=== PATIENT | male | born 1945 | race Caucasian/White ===

== ENCOUNTER 2016-11-19 19:48 | Observation (INO) | payer MEDICARE, OTHER ==
[~2016-11-19] VITALS: Ht 185.4 cm; Wt 99.5 kg
--- OUTSIDE RECORDS SUMMARY | 2016-11-19 19:52 | XMS REPORT | Summary of Care ---
Author Author Jorge A Daugherty M.D. Organization Unknown Address [address], [place] [id number] Phone Unavailable Care Team Providers Care Registered Respiratory Therapist Name Role Phone Jorge A Daugherty M.D. Unavailable Unavailable Ten Aggarwal M.D. Unavailable Unavailable Gorge Maher, Rodríguez Unavailable Unavailable Jorge A Daugherty PP Unavailable Unavailable Unavailable Functional Status Functional Status Health Issues* Name Dates Details Functional status health issues are not documented Status: Cognitive Status Health Issues* Name Dates Details Cognitive status health issues are not documented Status: Problems Name Dates Details Itching Localized To Skin Rash Or Sores Status: Active Cough (786.2, R05) Status: Active Difficulty breathing (786.09, R06.89) Status: Active Atypical chest pain (786.59, R07.89) Status: Active Internal hemorrhoids (455.0, K64.8) Status: Active Encounter for screening for malignant neoplasm of colon (V76.51, Z12.11) Status: Active Bronchitis (490, J40) Status: Active Flu vaccine need (V04.81, Z23) Status: Active Need for vaccination for strep pneumoniae + influenza (V06.6, Z23) Status: Active Dyslipidemia (272.4, E78.5) Status: Active Contact dermatitis (692.9, L25.9) Status: Active Abdominal pain (789.00, R10.9) Status: Active Kidney stone (592.0, N20.0) Status: Active GERD (gastroesophageal reflux disease) (530.81, K21.9) Status: Active Memory loss (780.93, R41.3) Status: Active Chronic obstructive pulmonary disease (496, J44.9) Status: Active Acute bronchitis (466.0, J20.9) Status: Active Chronic constipation (564.00, K59.00) Status: Active Hyperlipidemia (272.4, E78.5) Status: Active Medications Name Dates Details PriLOSEC OTC 20 MG Oral Tablet Delayed Release Take 1 tablet daily * Started 14-Mar-2012 ActiveAlbuterol Sulfate (2.5 MG/3ML) 0.083% Inhalation Nebulization Solution USE 1 UNIT DOSE VIA NEBULIZER 4 TIMES A DAY NEEDED * Quantity: 1 Refills: 0 Jorge A Daugherty M.D.* Started 23-Jul-2012 Active3 ML Plas Cont (60 Plas Conts) Stool Softener 100 MG Oral Capsule Take 100mg (2 tablets) po @ HS prn * Refills: 0 Nell Aggarwal M.D.* Started 16-Oct-2012 ActiveAtorvastatin Calcium 80 MG Oral Tablet TAKE 1 TABLET AT BEDTIME. * Quantity: 90 Refills: 3 Jorge A Daugherty M.D.* Started 10-Nov-2013 ActiveBiotin 10 MG Oral Tablet * Refills: 0 * Started 26-Oct-2014 ActiveDonepezil HCl - 10 MG Oral Tablet TAKE 1/2 TABLET DAILY FOR 4 WEEKS,THEN 1 TABLET DAILY THEREAFTER * Quantity: 30 Refills: 5 Sam Pennington M.D.* Started 10-May-2015 Active Allergies and Adverse Reactions Name Dates Details No Known Drug Allergies Status: Active Past Medical History Name Dates Details History of asthma (V12.69, Z87.09) Status: Resolved History of head injury (V15.59, Z87.828) Status: Resolved History of Hearing loss of both ears (389.9, H91.93) Status: Resolved History of seasonal allergies (V15.09, Z88.9) Status: Resolved History of tinnitus (V12.49, Z86.69) Status: Resolved History of Wears glasses (V49.89, Z97.3) Status: Resolved Procedures Procedure Dates Details History of Appendectomy History of Complete Colonoscopy For Polyp Removal Completed:16-Oct-2012 History of Tonsillectomy History of Closed Treatment Of Clavicular Fracture Procedures not documented Immunization Name Dates Details Influenza Administered on:16-Sep-2009 Influenza A (H1N1) Monoval PF Intramuscular Suspension Administered on:16-Sep-2009 Pneumo (Pneumovax) Administered on:16-Sep-2009 Influenza Administered on:24-Apr-2011 Zoster (Zostavax) Administered on:19-Aug-2012 Influenza Administered on:08-Jul-2013 Fluzone High-Dose Intramuscular Suspension Lot #: [id number] Administered on:22-Jun-2014 Prevnar 13 Intramuscular Suspension Lot #: [id number] Administered on:22-Jun-2014 Tdap (Adacel) Lot #: [id number] Administered on: Fluzone High-Dose Intramuscular Suspension Lot #: [id number] Administered on:25-Apr-2015 Family History Unknown Family Member* Name Dates Details Family history of Acute Myocardial Infarction (V17.3) Comments: Family History Status: Active Grandmother* Name Dates Details Family history of Heart Disease (V17.49) Status: Active Grandmother* Name Dates Details Family history of Acute Myocardial Infarction (V17.3) Status: Active Father* Name Dates Details Family history of Prostate Cancer (V16.42) Status: Active Brother* Name Dates Details Family history of Hypercholesterolemia Status: Active Social History Name Dates Details Smoking Status* Former smoker * Former smoker Vital Signs Date Test Result Details 08-Aug-2015 10:33 BP Systolic 128 mm[Hg] Status: BP Diastolic 86 mm[Hg] Status: Heart Rate 84 /min Status: Respiration Rate 18 /min Status: Weight 214 lb Status: Body Mass Index Calculated 28.23 kg/m2 Status: Body Surface Area Calculated 2.21 m2 Status: Results Date Description Value Details Results not documented Plan of Care Planned Observations* Name Dates Details Planned Goals not documented Goal Planned Encounters* Appointment; Provider: Sam Pennington On 08-Nov-2015 09:30 * Appointment; Provider: Jorge A Daugherty On 07-Nov-2015 09:00 Instructions * Instructions not documented Encounters Appointment; Jorge A Daugherty Encounter Diagnosis: Problem not documented On 08-Aug-2015 10:30 Appointment; Sam Pennington Encounter Diagnosis: Problem not documented On 10-May-2015 08:30 Appointment; Jorge A Daugherty Encounter Diagnosis: Problem not documented On 25-Apr-2015 08:45 Appointment; Jorge A Daugherty Encounter Diagnosis: Problem not documented On 09:00 Appointment; Jorge A Daugherty Encounter Diagnosis: Problem not documented On 09:00 Appointment; Jorge A Daugherty Encounter Diagnosis: Problem not documented On 09:00 Appointment; Jorge A Daugherty Encounter Diagnosis: Problem not documented On 08:45 Appointment; Jorge A Daugherty Encounter Diagnosis: Problem not documented On 06-Dec-2014 09:30 Appointment; Jorge A Daugherty Encounter Diagnosis: Problem not documented On 29-Nov-2014 11:00 Appointment; Sam Pennington Encounter Diagnosis: Problem not documented On 05-Nov-2014 09:45 Appointment; Sam Pennington Encounter Diagnosis: Problem not documented On 26-Oct-2014 10:00 Appointment; Jorge A Daugherty Encounter Diagnosis: Problem not documented On 29-Sep-2014 09:15 Appointment; Jorge A Daugherty Encounter Diagnosis: Problem not documented On 22-Jun-2014 09:00 Appointment; Jorge A Daugherty Encounter Diagnosis: Problem not documented On 16-Mar-2014 09:00 Appointment; Sam [place] Encounter Diagnosis: Problem not documented On 11:00 Appointment; Sam Park Encounter Diagnosis: Problem not documented On 14:45 Appointment; Sam [place] Encounter Diagnosis: Problem not documented On 03-Dec-2013 17:15 Appointment; Sam [place] Encounter Diagnosis: Problem not documented On 03-Dec-2013 15:30 Appointment; Jorge A Daugherty Encounter Diagnosis: Problem not documented On 10-Nov-2013 09:00 Appointment; Jorge A Daugherty Encounter Diagnosis: Problem not documented On 30-Oct-2013 11:00 Appointment; Jorge A Daugherty Encounter Diagnosis: Problem not documented On 28-Oct-2013 09:30
--- OUTSIDE RECORDS SUMMARY | 2016-11-19 19:52 | XMS REPORT | Summary of Care ---
Author Author Sam Pennington M.D. Unknown Address [address], [place] [id number] Phone Unavailable Care Team Providers Care Sample Sawyer Name Role Phone Jorge A Daugherty M.D. Unavailable Unavailable Ten Aggarwal M.D. Unavailable Unavailable Jorge A Daugherty PP Unavailable [...] Active Difficulty breathing (786.09, R06.89) Status: Active Acute bronchitis (466.0, J20.9) Status: Active Atypical chest pain (786.59, R07.89) Status: Active Internal hemorrhoids (455.0, K64.8) Status: Active Encounter for screening for malignant neoplasm of colon (V76.51, Z12.11) Status: Active Bronchitis (490, J40) Status: Active Flu vaccine need (V04.81, Z23) Status: Active Need for vaccination for strep pneumoniae + influenza (V06.6, Z23) Status: Active Chronic obstructive pulmonary disease (496, J44.9) Status: Active Chronic constipation (564.00, K59.00) Status: Active Dyslipidemia (272.4, E78.5) Status: Active Hyperlipidemia (272.4, E78.5) Status: Active GERD (gastroesophageal reflux disease) (530.81, K21.9) Status: Active Contact dermatitis (692.9, L25.9) Status: Active Memory loss (780.93, R41.3) Status: Active Medications Name Dates Details PriLOSEC OTC 20 MG Oral Tablet Delayed Release Take 1 tablet daily * Started 14-Mar-2012 ActiveAlbuterol Sulfate (2.5 MG/3ML) 0.083% Inhalation Nebulization Solution USE 1 UNIT DOSE VIA NEBULIZER 4 TIMES A DAY NEEDED * Quantity: 1 Refills: 0 Jorge A Daugherty M.D.* Started 23-Jul-2012 Active3 ML Plas Cont (60 Plas Conts) Proventil HFA 108 (90 Base) MCG/ACT Inhalation Aerosol Solution 2 PUFFS EVERY 4 TO 6 HOURS NEEDED * Quantity: 1 Refills: 4 Jorge A Daugherty M.D.* Started 23-Jul-2012 Active6.7 GM Inhaler Stool Softener 100 MG Oral Capsule Take 100mg (2 tablets) po @ HS prn * Refills: 0 Nell Aggarwal M.D.* Started 16-Oct-2012 ActiveAtorvastatin Calcium 80 MG Oral Tablet TAKE 1 TABLET AT BEDTIME. * Quantity: 90 Refills: 3 Jorge A Daugherty M.D.* Started 10-Nov-2013 ActiveBiotin 10 MG Oral Tablet * Refills: 0 * Started 26-Oct-2014 Active Allergies and Adverse Reactions Name Dates [...] History of Closed Treatment Of Clavicular Fracture Neuro Dementia Profile 9011 Ordered:26-Oct-2014 CT HEAD WITHOUT AND WITH IV CONTRAST Ordered:26-Oct-2014 Immunization Name Dates Details Influenza Administered on:16-Sep-2009 Influenza A (H1N1) Monoval PF Intramuscular Suspension Administered on:16-Sep-2009 Pneumo (Pneumovax) Administered on:16-Sep-2009 Influenza Administered on:24-Apr-2011 Zoster (Zostavax) Administered on:19-Aug-2012 Influenza Administered on:08-Jul-2013 Fluzone High-Dose Intramuscular Suspension Lot #: [id number] Administered on:22-Jun-2014 Prevnar 13 Intramuscular Suspension Lot #: [id number] Administered on:22-Jun-2014 Family History Unknown Family Member* Name Dates [...] smoker Vital Signs Date Test Result Details 26-Oct-2014 10:09 BP Systolic 130 mm[Hg] Status: BP Diastolic 76 mm[Hg] Status: Heart Rate 78 /min Status: Respiration Rate 16 /min Status: Weight 219.125 lb Status: Body Mass Index Calculated 28.91 kg/m2 Status: Body Surface Area Calculated 2.24 m2 Status: 29-Sep-2014 08:47 BP Systolic 126 mm[Hg] Status: BP Diastolic 78 mm[Hg] Status: Heart Rate 76 /min Status: Respiration Rate 20 /min Status: Weight 224.2 lb Status: Body Mass Index Calculated 29.58 kg/m2 Status: Body Surface Area Calculated 2.26 m2 Status: Results Date Description Value Details Results not documented Plan of Care Planned Observations* Name Dates Details Planned Goals not documented Goal Planned Encounters* Appointment; Provider: Jorge A Daugherty On 08:45 * Appointment; Provider: Sam Pennington On 17-Nov-2014 08:45 Instructions * Instructions not documented Encounters Appointment; Sam Pennington Encounter Diagnosis: Problem not [...] On 03-Dec-2013 15:30 Appointment; Jorge A Daugherty Diagnosis: Problem not documented On 10-Nov-2013 09:00 Appointment; Jorge A Daugherty Encounter Diagnosis: Problem not documented On 30-Oct-2013 11:00 Appointment; Jorge A Daugherty Diagnosis: Problem not documented On 28-Oct-2013 09:30 Appointment; Jorge A Daugherty Diagnosis: Problem not documented On 08-Jul-2013 13:30 Appointment; Jorge A Daugherty Diagnosis: Problem not documented On 18-Mar-2013 08:45 Appointment; Jorge A Daugherty Diagnosis: Problem not documented On 17-Nov-2012 09:00
--- OUTSIDE RECORDS SUMMARY | 2016-11-19 19:52 | XMS REPORT ---
Author Author Jorge A Daugherty Organization Unknown Address [address], [place] [id number] Phone Care Team Providers Care Manager Of Health Name Role Phone JulesWillow wilkins PP Unavailable Unavailable Reason for Referral No Reason for Referral was given. History of Present Illness No HPI available. Problems * Normal Routine History And Physical Senior Citizen (65-80) (V70.0); ( Active) * Acute Bronchitis (466.0); (Active) * Cough (786.2); (Active) * Chronic Obstructive Pulmonary Disease (496); (Active) * Atypical Chest Pain (786.59); (Active) * Difficulty Breathing (Dyspnea) (786.09); (Active) * Dyslipidemia (272.4); (Active) * Itching Localized To Skin Rash Or Sores (Active) * Hyperlipidemia (272.4); (Active) * Bronchitis (490); (Active) * Visit For: Screening Malignant Neoplasm Colon (V76.51); (Active) * Chronic Constipation (564.00); (Active) * Internal Hemorrhoids (455.0); (Active) Medication * Simvastatin 80 MG Oral Tablet; TAKE 1 TABLET Daily in the evening; Start Date : 09/08/2007; End Date: (Active) * PriLOSEC OTC 20 MG Oral Tablet Delayed Release; Take 1 tablet daily; Start Date: 03/14/2012 (Active) * Albuterol Sulfate (2.5 MG/3ML) 0.083% Inhalation Nebulization Solution; USE 1 UNIT DOSE VIA NEBULIZER 4 TIMES A DAY NEEDED; Start Date: 07/23/2012; End Date: (Active) * Proventil HFA 108 (90 Base) MCG/ACT Inhalation Aerosol Solution; 2 PUFFS EVERY 4 TO 6 HOURS NEEDED; Start Date: 07/23/2012; End Date: ( Active) * Stool Softener 100 MG Oral Capsule; Take 100mg (2 tablets) po @ HS prn; Start Date: 10/16/2012 (Active) Allergies and Adverse Reactions * No Known Drug Allergies (Active) Past Medical History * No Significant Medical History Procedures Procedure Procedure Date Date Completed Status Appendectomy - - Active Complete Colonoscopy For Polyp Removal 10/16/2012 - Active Immunization * Influenza - Administered on: 09/16/2009 * Influenza A (H1N1) Monoval PF Intramuscular Suspension - Administered on: * Pneumo (Pneumovax) - Administered on: 09/16/2009 * Influenza - Administered on: 04/24/2011 * Zoster (Zostavax); #Zostavax [id number] UNT/0 - Administered on: 08/19/2012 Family History * Paternal grandmother's history of Acute Myocardial Infarction (V17.3); (Active) * Maternal grandmother's history of Heart Disease (V17.49); (Active) * Paternal history of Prostate Cancer (V16.42); (Active) * Fraternal history of Hypercholesterolemia (Active) * Family history of Acute Myocardial Infarction (V17.3); (Active) Social History * Former Smoker Last Assessed: 11/17/2012 8:55:32 AM (V15.82); (Active) * Retired From Work (Active) * Marital History - Currently (Active) * Recently Stopping Smoking Comments: quit smoking 2008 (Active) * Educational Level - In College Year 2 (Active) * Caffeine Use Comments: 2 or less drinks daily (Active) * Being A Social Drinker Comments: rarely 2 or less drinks (Active) * Exercise Habits Comments: exercises daily (Active) * Racial Background (___ %) (Active) * [place] Language Finnish (Active) Vital Signs Date Description Test Result 17 Nov 2012 08:55 AM recorded by: Angeles Ledesma Weight 222.6 lb Body Mass Index Calculated 29.5 Body Surface Area Calculated 2.25 BP Systolic 132 mm[Hg] BP Diastolic 72 mm[Hg] Heart Rate 76 /min Resipration Rate 16 /min Treatment Plan * XN CARD REST PERFUSION 11/08/2011 Routine * XN NUC MED HEART WALL MOTION 11/08/2011 Routine * XN PERFUSION STUDY WITH EF 11/08/2011 Routine * XN CARD STRESS PERFUSION 11/08/2011 Routine Advance Directives * No Advance Directives available. Encounters * Appointment 11/17/2012 * RTNPT , Provider: Willow Jules, Status: Pen , Time: 8:45 AM 2012
--- OUTSIDE RECORDS SUMMARY | 2016-11-19 19:52 | XMS REPORT | Summary of Care ---
Author Author Jorge A Daugherty M.D. Organization Unknown Address Unknown Phone Unavailable Care Team Providers Care Lodge Sales Associate Name Role Phone Jorge A Daugherty M.D. Unavailable Unavailable Jasen Maher, Ten Unavailable Unavailable Jorge A Daugherty PP Unavailable Unavailable Unavailable Functional Status Functional Status Health Issues* Name Dates Details Functional status health issues are not documented Status: Cognitive Status Health Issues* Name Dates Details Cognitive status health issues are not documented Status: Problems Name Dates Details Hyperlipidemia (272.4, E78.5) Status: Active Chronic constipation (564.00, K59.09) Status: Active Memory loss (780.93, R41.3) Status: Active GERD (gastroesophageal reflux disease) (530.81, K21.9) Status: Active Dyslipidemia (272.4, E78.5) Status: Active COPD with exacerbation (491.21, J44.1) Status: Active Chronic obstructive pulmonary disease (496, J44.9) Status: Active Medications Name Dates Details PriLOSEC [...] 3 Jorge A Daugherty M.D.* Started 10-Nov-2013 Active Allergies and Adverse Reactions Name Dates [...] History of Closed Treatment Of Clavicular Fracture History of Cataract Extraction Procedures not documented Immunization Name Dates Details Influenza Administered on:16-Sep-2009 Influenza A (H1N1) Monoval PF Intramuscular Suspension Administered on:16-Sep-2009 Pneumo (Pneumovax) Administered on:16-Sep-2009 Influenza Administered on:24-Apr-2011 Zoster (Zostavax) Administered on:19-Aug-2012 Influenza Administered on:08-Jul-2013 Fluzone High-Dose Intramuscular Suspension Lot #: [id number] Administered on:22-Jun-2014 Prevnar 13 Intramuscular Suspension Lot #: [id number] Administered on:22-Jun-2014 Tdap (Adacel) Lot #: [id number] Administered on: Fluzone High-Dose Intramuscular Suspension Lot #: [id number] Administered on:25-Apr-2015 Family History Unknown Family Member* [...] smoker Vital Signs Date Test Result Details 08:13 BP Systolic 124 mm[Hg] Status: BP Diastolic 78 mm[Hg] Status: Heart Rate 76 /min Status: Respiration Rate 16 /min Status: Weight 219 lb Status: Body Mass Index Calculated 28.89 kg/m2 Status: Body Surface Area Calculated 2.24 m2 Status: Results Date Description Value Details Results not documented Plan of Care Planned Observations* Name Dates Details Planned Goals not documented Goal Planned Encounters* Appointment; Provider: Jorge A Daugherty On 29-May-2016 08:15 * Appointment; Provider: Jorge A Daugherty On 27-Feb-2016 08:15 Instructions * Instructions not documented Encounters Appointment; Jorge A Daugherty Encounter Diagnosis: Problem not documented On 08:15 Appointment; Jorge A Daugherty Encounter Diagnosis: Problem not documented On 21-Nov-2015 08:15 Appointment; Jorge A Daugherty Encounter Diagnosis: Problem not documented On 07-Nov-2015 09:15 Appointment; Jorge A Daugherty Encounter Diagnosis: [...]
--- OUTSIDE RECORDS SUMMARY | 2016-11-19 19:53 | XMS REPORT | Summary of Care ---
Author Author Jorge A Daugherty M.D. Organization Unknown Address [address] [place], [place] [id number] Phone Unavailable Care Team Providers Care Cashier Host/Hostess Name Role Phone Jorge A Daugherty M.D. [...] pneumoniae + influenza (V06.6, Z23) Status: Active Contact dermatitis (692.9, L25.9) Status: Active Abdominal pain (789.00, R10.9) Status: Active Kidney stone (592.0, N20.0) Status: Active Acute bronchitis (466.0, J20.9) Status: Active Hyperlipidemia (272.4, E78.5) Status: Active Chronic obstructive pulmonary disease (496, J44.9) Status: Active Chronic constipation (564.00, K59.00) Status: Active Dyslipidemia (272.4, E78.5) Status: Active GERD (gastroesophageal reflux disease) (530.81, K21.9) Status: Active Memory loss (780.93, R41.3) Status: Active Medications Name Dates Details PriLOSEC OTC 20 MG Oral Tablet Delayed Release Take 1 tablet daily * Started 14-Mar-2012 ActiveStool Softener 100 MG Oral Capsule Take 100mg [...] Refills: 5 Sam Pennington M.D.* Started 10-May-2015 ActiveAlbuterol Sulfate (2.5 MG/3ML) 0.083% Inhalation Nebulization Solution USE 1 UNIT DOSE VIA NEBULIZER 4 TIMES A DAY NEEDED * Quantity: 1 Refills: 0 Jorge A Daugherty M.D.* Started 23-Jul-2012 Active3 ML Plas Cont (60 Plas Conts) Allergies and Adverse Reactions Name Dates Details [...] on:08-Jul-2013 Fluzone High-Dose Intramuscular Suspension Lot #: [id number] Administered on:22-Jun-2014 Prevnar 13 Intramuscular Suspension Lot #: [id number] Administered on:22-Jun-2014 Tdap (Adacel) Lot #: [id number] Administered on: Fluzone High-Dose Intramuscular Suspension Lot #: [id number] Administered on:25-Apr-2015 Family History Unknown Family Member* [...] not documented On 09:00 Appointment; Jorge A aDugherty Encounter Diagnosis: Problem not documented On 09:00 [...]
--- OUTSIDE RECORDS SUMMARY | 2016-11-19 19:53 | XMS REPORT | Summary of Care ---
Author Author Jorge A Daugherty M.D. Unknown Address [address] [place], [place] [id number] Phone Unavailable Care Team Providers Care Hydrogenation Operator Name Role Phone Jorge A Daugherty M.D. [...] Active Memory loss (780.93, R41.3) Status: Active Abdominal pain (789.00, R10.9) Status: Active Chronic constipation (564.00, K59.00) Status: Active Kidney stone (592.0, N20.0) Status: Active Hyperlipidemia (272.4, E78.5) Status: Active GERD (gastroesophageal reflux disease) (530.81, K21.9) Status: Active Acute bronchitis (466.0, J20.9) Status: Active Chronic obstructive pulmonary disease (496, [...] Tablet * Refills: 0 * Started 26-Oct-2014 ActiveMedrol (Ric) 4 MG Oral Tablet TAKE DIRECTED. * Quantity: 1 Refills: 0 Jorge A Daugherty M.D.* Started [id number] Tablet Disp Pack Levofloxacin 500 MG Oral Tablet 1 tab po daily x 7 days * Quantity: 7 Refills: 0 Jorge A Daugherty M.D.* Started Active Allergies and Adverse Reactions Name Dates [...] on:08-Jul-2013 Fluzone High-Dose Intramuscular Suspension Lot #: [id number] Administered on:22-Jun-2014 Prevnar 13 Intramuscular Suspension Lot #: [id number] Administered on:22-Jun-2014 Tdap (Adacel) Lot #: [id number] Administered on: Family History Unknown Family Member* Name Dates [...] smoker Vital Signs Date Test Result Details No Known Vitals to report Results Date Description Value Details Results not documented Plan of Care Planned Observations* Name Dates Details Planned Goals not documented Goal Planned Encounters* Appointment; Provider: Sam Pennington On 10-May-2015 08:30 * Appointment; Provider: Jorge A Daugherty On 25-Apr-2015 08:45 Instructions * Instructions not documented Encounters [...] On 28-Oct-2013 09:30 Appointment; Jorge A Daugherty Encounter Diagnosis: Problem not documented On 08-Jul-2013 13:30 Appointment; Jorge A Daugherty Encounter Diagnosis: Problem not documented On 18-Mar-2013 08:45
--- OUTSIDE RECORDS SUMMARY | 2016-11-19 19:53 | XMS REPORT | Summary of Care ---
Author Author Jorge A Daugherty M.D. Unknown Address [address] [place], [place] [id number] Phone Unavailable Care Team Providers Care Financial Service Rep Name Role Phone Jorge A Daugherty M.D. [...] Refills: 0 Jorge A Daugherty M.D.* Started [id number] Tablet Disp Pack Levofloxacin 500 MG Oral [...] on:08-Jul-2013 Fluzone High-Dose Intramuscular Suspension Lot #: [id number] Administered on:22-Jun-2014 Prevnar 13 Intramuscular Suspension Lot #: [id number] Administered on:22-Jun-2014 Tdap (Adacel) Lot #: [id number] Administered on: Family History Unknown Family Member* [...]
--- OUTSIDE RECORDS SUMMARY | 2016-11-19 19:53 | XMS REPORT | Summary of Care ---
Author Author Jorge A Daugherty M.D. Organization Unknown Address [address], [place] [id number] Phone Unavailable Care Team Providers Care Senior Specialist Name Role Phone Jorge A Daugherty M.D. [...] To Skin Rash Or Sores Status: Active Difficulty breathing (786.09, R06.89) Status: [...] (496, J44.9) Status: Active Chronic constipation (564.00, K59.09) Status: Active Dyslipidemia (272.4, E78.5) Status: Active [...] 3 Jorge A Daugherty M.D.* Started 10-Nov-2013 ActivePredniSONE 10 MG Oral Tablet 4 tabs day x 4 days, 3 tabs day x 4 days, 2 tabs day x 4 days , 1 tab day x 4 days then d/c * Quantity: 40 Refills: 0 Jorge A Daugherty M.D.* Started 07-Nov-2015 Active Allergies and Adverse Reactions Name Dates [...] History of Closed Treatment Of Clavicular Fracture CBC w/ Auto Diff 7150 Ordered:07-Nov-2015 Immunization Name Dates Details Influenza Administered on:16-Sep-2009 Influenza A (H1N1) Monoval PF Intramuscular Suspension Administered on:16-Sep-2009 Pneumo (Pneumovax) Administered on:16-Sep-2009 Influenza Administered on:24-Apr-2011 Zoster (Zostavax) Administered on:19-Aug-2012 Influenza Administered on:08-Jul-2013 Fluzone High-Dose Intramuscular Suspension Lot #: [id number] Administered on:22-Jun-2014 Prevnar 13 Intramuscular Suspension Lot #: [id number] Administered on:22-Jun-2014 Tdap (Adacel) Lot #: [id number] Administered on: Fluzone High-Dose Intramuscular Suspension Lot #: [id number] Administered on:25-Apr-2015 Family History Unknown Family Member* [...] smoker Vital Signs Date Test Result Details 07-Nov-2015 08:34 BP Systolic 132 mm[Hg] Status: BP Diastolic 84 mm[Hg] Status: Heart Rate 78 /min Status: Respiration Rate 18 /min Status: Weight 216 lb Status: O2 SAT 97 % Status: Body Mass Index Calculated 28.5 kg/m2 Status: Body Surface Area Calculated 2.22 m2 Status: Results Date Description Value Details Results not documented Plan of Care Planned Observations* Name Dates Details Planned Goals not documented Goal Planned Encounters* Appointment; Provider: Jorge A Daugherty On 21-Nov-2015 08:15 * Appointment; Provider: Sam Pennington On 08-Nov-2015 09:30 Instructions * Instructions not documented Encounters Appointment; Jroge A Daugherty Diagnosis: Problem not documented On 08-Aug-2015 10:30 [...]
--- OUTSIDE RECORDS SUMMARY | 2016-11-19 19:53 | XMS REPORT | Summary of Care ---
Author Author Jorge A Daugherty M.D. Organization Unknown Address Unknown Phone Unavailable Care Team Providers Care Director Of Claims Name Role Phone Jorge A Daugherty M.D. Unavailable Unavailable Ten Aggarwal M.D. Unavailable Unavailable Jorge A Daugherty Unavailable Unavailable Unavailable Unavailable Functional Status Name Dates Details Functional status health issues are not documented Status: Name Dates Details Cognitive status health issues are not documented Status: Problems Name Dates Details Hyperlipidemia (272.4, E78.5) Status: Active Chronic constipation (564.00, K59.09) Status: Active Memory loss (780.93, R41.3) Status: Active Chronic obstructive pulmonary disease (496, J44.9) Status: Active COPD with exacerbation (491.21, J44.1) Status: Active Dyslipidemia (272.4, E78.5) Status: Active GERD (gastroesophageal reflux disease) (530.81, K21.9) Status: Active Medications Name Dates Details PriLOSEC OTC 20 MG Oral Tablet Delayed Release Take 1 tablet daily * Start 14-Mar-2012 Active Albuterol Sulfate (2.5 MG/3ML) 0.083% Inhalation Nebulization Solution USE 1 UNIT DOSE VIA NEBULIZER 4 TIMES A DAY NEEDED * Quantity: 1 Refills: 0 Jorge A Daugherty M.D. * Start 23-Jul-2012 Active 3 ML Plas Cont (60 Plas Conts) Stool Softener 100 MG Oral Capsule Take 100mg (2 tablets) po @ HS prn * Refills: 0 Jasen Maher December * Start 16-Oct-2012 Active Atorvastatin Calcium 80 MG Oral Tablet TAKE 1 TABLET AT BEDTIME. * Quantity: 90 Refills: 3 Jorge A Daugherty M.D. * Start 10-Nov-2013 Active Budesonide 0.25 MG/2ML Inhalation Suspension USE ONE VIAL IN NEBULIZER TWO TIMES DAILY * Quantity: 6 Refills: 3 Jorge A Daugherty M.D. * Start 27-Feb-2016 Active 2 ML Plas Cont (30 Plas Conts) Allergies and Adverse Reactions Name Dates Details No Known Drug Allergies (Allergy) Status: Active Past Medical History Name Dates [...] History of Complete Colonoscopy For Polyp Removal Completed: 16-Oct-2012 History of Tonsillectomy History of Closed Treatment Of Clavicular Fracture History of Cataract Extraction Procedures not documented Immunization Name Dates Details Influenza on: 16-Sep-2009 Influenza A (H1N1) Monoval PF SUSP on: 16-Sep-2009 Pneumo (Pneumovax) on: 16-Sep-2009 Influenza on: 24-Apr-2011 Zoster (Zostavax) on: 19-Aug-2012 Influenza on: 08-Jul-2013 Fluzone High-Dose SUSP Lot #: [id number] on: 22-Jun-2014 Prevnar 13 Intramuscular Suspension Lot #: [id number] on: 22-Jun-2014 Tdap (Adacel) Lot #: [id number] on: Fluzone High-Dose SUSP Lot #: [id number] on: 25-Apr-2015 Family History Name Dates Details Family history of Acute Myocardial Infarction (V17.3) Comments: Family History Status: Active Name Dates Details Family history of Heart Disease (V17.49) Status: Active Name Dates Details Family history of Acute Myocardial Infarction (V17.3) Status: Active Name Dates Details Family history of Prostate Cancer (V16.42) Status: Active Name Dates Details Family history of Hypercholesterolemia Status: Active Social History Name Dates Details - Status: Name Dates Details Former smoker Former smoker Vital Signs Date Test Result Details 27-Feb-2016 08:02 BP Systolic 132 mm[Hg] Status: Comments: Location: ; Position: BP Diastolic 88 mm[Hg] Status: Comments: Location: ; Position: Heart Rate 74 /min Status: Comments: Location: ; Physical Findings 14 Status: Comments: Respiration Weight 217 lb Status: Body Mass Index Calculated 28.63 kg/m2 Status: Body Surface Area Calculated 2.23 m2 Status: Results Date Description Value Details Results not documented Plan of Care Name Dates Details Planned Observations Planned Goals not documented Planned Encounters Appointment; Provider: Jorge A Daugherty M.D. On 29-May-2016 08:15 Interventions Provided Medication Changes* PredniSONE 10 MG Oral Tablet - Completed Instructions Name Dates Details Instructions not documented Encounters Appointment; Jorge A Daugherty M.D. Encounter Diagnosis: Problem not documented On 21-Nov-2015 08:15 Appointment; Jorge A Daugherty M.D. Encounter Diagnosis: Problem not documented On 07-Nov-2015 09:15 Appointment; Jorge A Daugherty M.D. Encounter Diagnosis: Problem not documented On 08-Aug-2015 10:30 Appointment; Sam Pennington M.D. Encounter Diagnosis: Problem not documented On 10-May-2015 08:30 Appointment; Jorge A Daugherty M.D. Encounter Diagnosis: Problem not documented On 25-Apr-2015 08:45 Appointment; Jorge A Daugherty M.D. Encounter Diagnosis: Problem not documented On 09:00 Appointment; Jorge A Daugherty M.D. Encounter Diagnosis: Problem not documented On 09:00 Appointment; Jorge A Daugherty M.D. Encounter Diagnosis: Problem not documented On 09:00 Appointment; Jorge A Daugherty M.D. Encounter Diagnosis: Problem not documented On 08:45 Appointment; Jorge A Daugherty M.D. Encounter Diagnosis: Problem not documented On 06-Dec-2014 09:30 Appointment; Jorge A Daugherty M.D. Encounter Diagnosis: Problem not documented On 29-Nov-2014 11:00 Appointment; Sam Pennington M.D. Encounter Diagnosis: Problem not documented On 05-Nov-2014 09:45 Appointment; Sam Pennington M.D. Encounter Diagnosis: Problem not documented On 26-Oct-2014 10:00 Appointment; Jorge A Daugherty M.D. Encounter Diagnosis: Problem not documented On 29-Sep-2014 09:15 Appointment; Jorge A Daugherty M.D. Encounter Diagnosis: Problem not documented On 22-Jun-2014 09:00
--- OUTSIDE RECORDS SUMMARY | 2016-11-19 19:53 | XMS REPORT | Summary of Care ---
Author Author Jorge A Daugherty M.D. Organization Unknown Address Unknown Phone Unavailable Care Team Providers Care Residential Interior Designer Name Role Phone Jorge A Daugherty M.D. [...] on: 08-Jul-2013 Fluzone High-Dose SUSP Lot #: [id number] on: 22-Jun-2014 Prevnar 13 Intramuscular Suspension Lot #: [id number] on: 22-Jun-2014 Tdap (Adacel) Lot #: [id number] on: Fluzone High-Dose SUSP Lot #: [id number] on: 25-Apr-2015 Family History Name Dates Details [...] Body Surface Area Calculated 2.23 m2 Status: 08:13 BP Systolic 124 mm[Hg] Status: Comments: Location: ; Position: BP Diastolic 78 mm[Hg] Status: Comments: Location: ; Position: Heart Rate 76 /min Status: Comments: Location: ; Physical Findings 16 Status: Comments: Respiration Weight 219 lb Status: Body Mass Index Calculated 28.89 kg/m2 Status: Body Surface Area Calculated 2.24 m2 Status: Results Date Description Value Details Results not documented Plan of Care Name Dates Details Planned Observations Planned Goals not documented Planned Encounters Appointment; Provider: Jorge A Daugherty M.D. On 29-May-2016 08:15 Instructions Name Dates Details Instructions not documented Encounters Appointment; Jorge A Daugherty M.D. Encounter Diagnosis: Problem not documented On 08:15 Appointment; Jorge A Daugherty M.D. Encounter [...] On 22-Jun-2014 09:00 Appointment; Jorge A Daugherty M.D. Encounter Diagnosis: Problem not documented On 16-Mar-2014 09:00
--- OUTSIDE RECORDS SUMMARY | 2016-11-19 19:53 | XMS REPORT | Summary of Care ---
Author Author Jorge A Daugherty M.D. Unknown Address [address], [place] [id number] Phone Unavailable Care Team Providers Care Residential Property Tax Appraiser Name Role Phone Jorge A Daugherty M.D. [...] Active Contact dermatitis (692.9, L25.9) Status: Active Chronic obstructive pulmonary disease (496, J44.9) Status: Active GERD (gastroesophageal reflux disease) (530.81, K21.9) Status: Active Memory loss (780.93, R41.3) Status: Active Hyperlipidemia (272.4, E78.5) Status: Active Chronic constipation (564.00, K59.00) Status: Active Kidney stone (592.0, N20.0) Status: Active Abdominal pain (789.00, R10.9) Status: Active Medications Name Dates Details PriLOSEC [...] on:08-Jul-2013 Fluzone High-Dose Intramuscular Suspension Lot #: [id number] Administered on:22-Jun-2014 Prevnar 13 Intramuscular Suspension Lot #: [id number] Administered on:22-Jun-2014 Tdap (Adacel) Lot #: [id number] Administered on: Family History Unknown Family Member* [...] smoker Vital Signs Date Test Result Details 08:44 BP Systolic 130 mm[Hg] Status: BP Diastolic 80 mm[Hg] Status: Heart Rate 70 /min Status: Weight 218 lb Status: Body Mass Index Calculated 28.76 kg/m2 Status: Body Surface Area Calculated 2.23 [...]
--- OUTSIDE RECORDS SUMMARY | 2016-11-19 19:53 | XMS REPORT | Summary of Care ---
Author Author Jorge A Daugherty M.D. Unknown Address [address], [place] [id number] Phone Unavailable Care Team Providers Care At Home Independent Call Center Agent Name Role Phone Jorge A Daugherty M.D. [...] 4 TO 6 HOURS NEEDED * Quantity: 3 Refills: 1 Jorge A Daugherty M.D.* Started 23-Jul-2012 Active6.7 [...] on:08-Jul-2013 Fluzone High-Dose Intramuscular Suspension Lot #: [id number] Administered on:22-Jun-2014 Prevnar 13 Intramuscular Suspension Lot #: [id number] Administered on:22-Jun-2014 Tdap (Adacel) Lot #: [id number] Administered on: Fluzone High-Dose Intramuscular Suspension Lot #: [id number] Administered on:25-Apr-2015 Family History Unknown Family Member* [...] smoker Vital Signs Date Test Result Details 25-Apr-2015 08:42 BP Systolic 132 mm[Hg] Status: BP Diastolic 88 mm[Hg] Status: Heart Rate 76 /min Status: Respiration Rate 18 /min Status: Height 73 in Status: Weight 209 lb Status: Body Mass Index Calculated 27.57 kg/m2 Status: Body Surface Area Calculated 2.19 m2 Status: Results Date Description Value Details Results not documented Plan of Care Planned Observations* Name Dates Details Planned Goals not documented Goal Planned Encounters* Appointment; Provider: Jorge A Daugherty On 01-Aug-2015 10:00 * Appointment; Provider: Sam Pennington On 10-May-2015 08:30 Instructions * Instructions not documented Encounters Appointment; [...]
--- OUTSIDE RECORDS SUMMARY | 2016-11-19 19:54 | XMS REPORT | Summary of Care ---
Author Author Jorge A Daugherty M.D. Organization Unknown Address Unknown Phone Unavailable Care Team Providers Care Master Certified Rv Technician Name Role Phone Jorge A Daugherty M.D. Unavailable Unavailable Jasen Maher, Ten Unavailable Unavailable Jorge A Daugherty PP Unavailable Unavailable Unavailable Functional Status Functional Status Health Issues* Name Dates Details Functional status health issues are not documented Status: Cognitive Status Health Issues* Name Dates Details Cognitive status health issues are not documented Status: Problems Name Dates Details Internal hemorrhoids (455.0, K64.8) Status: Active Encounter for screening for malignant neoplasm of colon (V76.51, Z12.11) Status: Active Flu vaccine need (V04.81, Z23) Status: Active Kidney stone (592.0, N20.0) Status: Active Hyperlipidemia (272.4, E78.5) Status: Active Chronic constipation (564.00, K59.09) Status: Active Memory loss (780.93, R41.3) Status: Active GERD (gastroesophageal reflux disease) (530.81, K21.9) Status: Active Dyslipidemia (272.4, E78.5) Status: Active Easy bruising (782.9, R23.8) Status: Active COPD with exacerbation (491.21, J44.1) [...] on:08-Jul-2013 Fluzone High-Dose Intramuscular Suspension Lot #: [id number] Administered on:22-Jun-2014 Prevnar 13 Intramuscular Suspension Lot #: [id number] Administered on:22-Jun-2014 Tdap (Adacel) Lot #: [id number] Administered on: Fluzone High-Dose Intramuscular Suspension Lot #: [id number] Administered on:25-Apr-2015 Family History Unknown Family Member* [...] Dates Details Planned Goals not documented Goal Instructions * Instructions not documented Encounters Appointment; Jorge A Daugherty Diagnosis: Problem not documented On 08:15 Appointment; [...] On 25-Apr-2015 08:45 Appointment; Jorge A Daugherty Diagnosis: Problem not documented On 09:00 Appointment; [...] documented On 22-Jun-2014 09:00 Appointment; Jorge A Daugheryt Encounter Diagnosis: Problem not documented On 16-Mar-2014 09:00
--- OUTSIDE RECORDS SUMMARY | 2016-11-19 19:54 | XMS REPORT | Summary of Care ---
Author Author Sam Pennington M.D. Unknown Address [address], [place] [id number] Phone Unavailable Care Team Providers Care Band Tier Name Role Phone Jorge A Daugherty M.D. [...] Clavicular Fracture Neuro Dementia Profile 9011 Ordered:26-Oct-2014 Immunization Name Dates Details Influenza Administered on:16-Sep-2009 Influenza A (H1N1) Monoval PF Intramuscular Suspension Administered on:16-Sep-2009 Pneumo (Pneumovax) Administered on:16-Sep-2009 Influenza Administered on:24-Apr-2011 Zoster (Zostavax) Administered on:19-Aug-2012 Influenza Administered on:08-Jul-2013 Fluzone High-Dose Intramuscular Suspension Lot #: [id number] Administered on:22-Jun-2014 Prevnar 13 Intramuscular Suspension Lot #: [id number] Administered on:22-Jun-2014 Family History Unknown Family Member* [...] smoker Vital Signs Date Test Result Details 05-Nov-2014 10:08 BP Systolic 140 mm[Hg] Status: BP Diastolic 80 mm[Hg] Status: Heart Rate 72 /min Status: Weight 220.125 lb Status: Body Mass Index Calculated 29.04 kg/m2 Status: Body Surface Area Calculated 2.24 m2 Status: 26-Oct-2014 10:09 BP Systolic 130 mm[Hg] Status: BP Diastolic 76 mm[Hg] Status: Heart Rate 78 /min Status: Respiration Rate 16 /min Status: Weight 219.125 lb Status: Body Mass Index Calculated 28.91 kg/m2 Status: Body Surface Area Calculated 2.24 m2 Status: Results Date Description Value Details 26-Oct-2014 11:19 CBC w/ Auto Diff 7150 WBC 7.4 K/uL (Better) Range: 4.5-11.0 RBC 5.14 mil/uL (Better) Range: 4.20-5.40 HGB 15.8 g/dL (Better) Range: 14.0-18.0 HCT 43.6 % (Better) Range: 42.0-53.0 MCV 84.8 fL (Better) Range: 80.0-99.0 MCH 30.7 pg (Better) Range: 27.3-32.5 MCHC 36.2 % (Above high threshold) Range: 32.0-36.0 RDW 13.3 % (Better) Range: 11.6-14.8 PLATELETS 173 K/uL (Better) Range: 150-400 MPV 7.6 fL (Better) Range: 6.0-11.0 %NEUTRO 65.3 % (Better) Range: 37.0-80.0 %LYMPHS 24.7 % (Better) Range: 13.0-50.0 %MONO 5.7 % (Better) Range: 0.0-12.0 %EOS 1.7 % (Better) Range: 0.0-7.0 %BASO 0.4 % (Better) Range: 0.0-2.5 %ALESHIA 2.2 % (Better) Range: 0.0-5.0 NEUTRO 4.8 K/uL (Better) Range: 2.0-6.9 LYMPHS 1.8 K/uL (Better) Range: 0.6-3.4 MONOS 0.4 K/uL (Better) Range: 0.0-0.9 EOS 0.1 K/uL (Better) Range: 0.0-0.7 BASO 0.0 K/uL (Better) Range: 0.0-0.2 11:35 ERYTHROCYTE SED RATE 7800 ERYTHROCYTE SED RATE 6 mm/60 min. (Better) Range: 0-15 11:45 FREE T4 3604 FREE T4 1.43 ng/dL (Better) Range: 0.80-1.67 11:45 VITAMIN B12 3606 VITAMIN B12 675 pg/mL (Better) Range: 211-911 11:45 FOLATE 3608 FOLATE 14.6 ng/mL (Better) Range: 5.4-20.8 11:45 THYROID STIM. HORMONE 3602 THYROID STIM. HORMONE 1.596 uIU/mL (Better) Range: 0.550-4.780 Comments: \[id number]\No established reference ranges for infants and children < 2 years of ageNo established reference ranges for infants and children <2 years of age----- 14:01 Comprehensive Metabolic Panel 1212 SODIUM 136 mmol/L (Better) Range: 133-144 POTASSIUM 4.2 mmol/L (Better) Range: 3.5-5.1 CHLORIDE 100 mmol/L (Better) Range: 98-110 CARBON DIOXIDE 27.3 mmol/L (Better) Range: 23.0-33.0 ANION GAP 9 mmol/L (Better) Range: 6-16 BUN 16 mg/dL (Better) Range: 7-18 CREATININE, SERUM 1.07 mg/dL (Better) Range: 0.43-1.13 BUN:CREATININE RATIO 15 (Better) EST GFR, >60 ml/min (Better) Range: >60 EST GFR, NON-AFR [place] >60 ml/min (Better) Range: >60 Comments: EST GFR is reported in ml/min per 1.73 m2 of body surface area. For -[place]ian, please multiple result by 1.2.----- GLUCOSE 95 mg/dL (Better) Range: 70-100 ALK PHOSPHATASE 72 U/L (Better) Range: 46-116 TOTAL BILIRUBIN 0.80 mg/dL (Better) Range: 0.20-1.00 AST 23 U/L (Better) Range: 8-35 ALT 28 U/L (Better) Range: 16-63 Comments: Please note new reference ranges. Effective 10/07/2014.----- ALBUMIN 4.0 g/dL (Better) Range: 3.4-5.0 TOTAL PROTEIN 7.5 g/dL (Better) Range: 6.4-8.2 A/G RATIO 1.1 units (Better) Range: 1.0-1.8 CALCIUM 9.3 mg/dL (Better) Range: 8.5-10.1 28-Oct-2014 08:10 CT HEAD WITHOUT AND WITH IV CONTRAST Comments: Exam Date: 07:38Dictation Date: 08:10 XC HEAD (Better) 14:02 ANTINUCLEAR ANTIBODIES 3902 ANTINUCLEAR ANTIBODIES 33 AU/mL (Better) Range: 0-120 Comments: REFERENCE VALUE INTERPRETATION 0-99 U/mL - NEGATIVE 100 - 120 U/mL - EQUIVOCAL >120 U/mL - POSITIVE--- -- Plan of Care Planned Observations* Name Dates Details Planned Goals not documented Goal Planned Encounters* Appointment; Provider: Jorge A Daugherty On 08:45 Instructions * Instructions not documented Encounters [...] On 10-Nov-2013 09:00 Appointment; Jorge A Daugherty Diagnosis: Problem not documented On 30-Oct-2013 11:00 Appointment; Jorge A Daugherty Encounter Diagnosis: Problem not documented On 28-Oct-2013 09:30 Appointment; Jorge A Daugherty Diagnosis: Problem not documented On 08-Jul-2013 13:30 Appointment; Jorge A Daugherty Encounter Diagnosis: Problem not documented On 18-Mar-2013 08:45 Appointment; Jorge A Daugherty Diagnosis: Problem not documented On 17-Nov-2012 09:00
--- OUTSIDE RECORDS SUMMARY | 2016-11-19 19:54 | XMS REPORT | Summary of Care ---
Author Author Jorge A Daugherty M.D. Organization Unknown Address Unknown Phone Unavailable Care Team Providers Care Legal Practice Manager Name Role Phone Jorge A Daugherty M.D. Unavailable Unavailable Ten Aggarwal M.D. Unavailable Unavailable Jorge A Daugherty Unavailable Unavailable Unavailable Unavailable Functional Status Name Dates Details Functional status health issues are not documented Status: Name Dates Details Cognitive status health issues are not documented Status: Problems Name Dates Details Memory loss (780.93, R41.3) Status: Active Chronic obstructive pulmonary disease (496, J44.9) Status: Active Hyperlipidemia (272.4, E78.5) Status: Active GERD (gastroesophageal reflux disease) (530.81, K21.9) Status: Active Chronic constipation (564.00, K59.09) Status: Active Medications Name Dates Details PriLOSEC OTC 20 MG Oral Tablet Delayed Release Take 1 tablet daily * Start 14-Mar-2012 Active Albuterol Sulfate (2.5 MG/3ML) 0.083% Inhalation Nebulization Solution USE 1 UNIT DOSE VIA NEBULIZER 4 TIMES A DAY NEEDED * Quantity: 1 Refills: 0 Jorge A Daugherty M.D. * Start 23-Jul-2012 Active 3 ML Plas Cont (60 Plas Conts) ProAir HFA 108 (90 Base) MCG/ACT Inhalation Aerosol Solution 2 PUFFS EVERY 4 TO 6 HOURS NEEDED * Quantity: 3 Refills: 2 Jorge A Daugherty M.D. * Start 23-Jul-2012 Active 8.5 GM Inhaler Stool Softener 100 MG Oral [...] on: 08-Jul-2013 Fluzone High-Dose SUSP Lot #: [id number] on: 22-Jun-2014 Prevnar 13 Intramuscular Suspension Lot #: [id number] on: 22-Jun-2014 Tdap (Adacel) Lot #: [id number] on: Fluzone High-Dose SUSP Lot #: [id number] on: 25-Apr-2015 Fluzone High-Dose 0.5 ML Intramuscular Suspension Prefilled Syringe Lot #: [id number] on: 29-May-2016 Pneumo (Pneumovax) Lot #: [id number] on: 29-May-2016 Family History Name Dates Details Family history [...] smoker Vital Signs Date Test Result Details 29-Aug-2016 08:08 BP Systolic 126 mm[Hg] Status: Comments: Location: ; Position: BP Diastolic 84 mm[Hg] Status: Comments: Location: ; Position: Heart Rate 84 /min Status: Comments: Location: ; Physical Findings 14 Status: Comments: Respiration Weight 222 lb Status: Body Mass Index Calculated 30.96 kg/m2 Status: Body Surface Area Calculated 2.2 m2 Status: Results Date Description Value Details Results not documented Plan of Care Name Dates Details Planned Observations Planned Goals not documented Planned Encounters Appointment; Provider: Jorge A Daugherty M.D. On 26-Nov-2016 08:15 Interventions Provided Medication Changes* ProAir HFA 108 (90 Base) MCG/ACT Inhalation Aerosol Solution - Renew Instructions Name Dates Details Instructions not documented Encounters Appointment; Jorge A Daugherty M.D. Encounter Diagnosis: Problem not documented On 02-Jul-2016 08:15 Appointment; Jorge A Daugherty M.D. Encounter Diagnosis: Problem not documented On 29-May-2016 08:15 Appointment; Jorge A Daugherty M.D. Encounter Diagnosis: Problem not documented On 27-Feb-2016 08:15 Appointment; Jorge A Daugherty M.D. Encounter [...]
--- OUTSIDE RECORDS SUMMARY | 2016-11-19 19:54 | XMS REPORT | Summary of Care ---
Author Author Jorge A Daugherty M.D. Unknown Address [address], [place] [id number] Phone Unavailable Care Team Providers Care Parlor Chaperone Name Role Phone Jorge A Daugherty M.D. [...] Status: Active Hyperlipidemia (272.4, E78.5) Status: Active Abdominal pain (789.00, R10.9) Status: Active Kidney stone (592.0, N20.0) Status: Active Chronic constipation (564.00, K59.00) Status: Active Medications Name Dates Details PriLOSEC [...] on:08-Jul-2013 Fluzone High-Dose Intramuscular Suspension Lot #: [id number] Administered on:22-Jun-2014 Prevnar 13 Intramuscular Suspension Lot #: [id number] Administered on:22-Jun-2014 Tdap (Adacel) Lot #: [id number] Administered on: Family History Unknown Family Member* [...]
--- OUTSIDE RECORDS SUMMARY | 2016-11-19 19:54 | XMS REPORT | Summary of Care ---
Author Author Jorge A Daugherty M.D. Unknown Address [address], [place] [id number] Phone Unavailable Care Team Providers Care Park Services Specialist Name Role Phone Jorge A Daugherty [...] on:08-Jul-2013 Fluzone High-Dose Intramuscular Suspension Lot #: [id number] Administered on:22-Jun-2014 Prevnar 13 Intramuscular Suspension Lot #: [id number] Administered on:22-Jun-2014 Family History Unknown Family Member* [...] ml/min (Better) Range: >60 EST GFR, NON-AFR CITIZEN OF [place] >60 ml/min (Better) Range: >60 Comments: EST GFR is reported in ml/min per 1.73 m2 of body surface area. For -[place], please multiple result by 1.2.----- GLUCOSE 95 [...] * Appointment; Provider: Jorge A Daugherty On 08:45 [...]
--- OUTSIDE RECORDS SUMMARY | 2016-11-19 19:54 | XMS REPORT | Summary of Care ---
Author Author Jorge A Daugherty M.D. Organization Unknown Address Unknown Phone Unavailable Care Team Providers Care Sample Book Maker Name Role Phone Jorge A Daugherty M.D. [...] Active Chronic constipation (564.00, K59.09) Status: Active Cough (786.2, R05) Status: Active COPD exacerbation (491.21, J44.1) Status: Active Acute bronchitis (466.0, J20.9) Status: Active Medications Name Dates Details PriLOSEC [...] @ HS prn * Refills: 0 Jasen Maher, Nell J * Start 16-Oct-2012 Active Atorvastatin Calcium 80 MG Oral Tablet TAKE 1 TABLET AT BEDTIME. * Quantity: 90 Refills: 3 Jorge A Daugherty M.D. * Start 10-Nov-2013 Active Budesonide 0.25 MG/2ML Inhalation Suspension USE ONE VIAL IN NEBULIZER TWO TIMES DAILY * Quantity: 6 Refills: 3 Jorge A Daugherty M.D. * Start 27-Feb-2016 Active 2 ML Plas Cont (30 Plas Conts) PredniSONE 10 MG Oral Tablet 4 tabs po daily x 3 days, 3 tabs po daily x 3 days, 2 tabs po daily x 3 days, 1 tab po daily x 3 days then d/c * Quantity: 30 Refills: 0 Jorge A Daugherty M.D. * Start 12-Sep-2016 Active LevoFLOXacin 500 MG Oral Tablet 1 tab po daily x 7 days * Quantity: 7 Refills: 0 Jorge A Daugherty M.D. * Start 12-Sep-2016 Active Allergies and Adverse Reactions Name Dates [...] on: 08-Jul-2013 Fluzone High-Dose SUSP Lot #: [id number] on: 22-Jun-2014 Prevnar 13 Intramuscular Suspension Lot #: [id number] on: 22-Jun-2014 Tdap (Adacel) Lot #: [id number] on: Fluzone High-Dose SUSP Lot #: [id number] on: 25-Apr-2015 Fluzone High-Dose 0.5 ML Intramuscular Suspension Prefilled Syringe Lot #: [id number] on: 29-May-2016 Pneumo (Pneumovax) Lot #: [id number] on: 29-May-2016 Family History Name Dates Details [...] smoker Vital Signs Date Test Result Details 12-Sep-2016 09:44 BP Systolic 118 mm[Hg] Status: Comments: Location: ; Position: BP Diastolic 66 mm[Hg] Status: Comments: Location: ; Position: Temperature 98.9 f Status: Heart Rate 86 /min Status: Comments: Location: ; Physical Findings 18 Status: Comments: Respiration Weight 229 lb Status: Physical Findings 96 Status: Comments: O2 Saturation Body Mass Index Calculated 31.94 kg/m2 Status: Body Surface Area Calculated 2.23 m2 Status: 29-Aug-2016 08:08 BP Systolic 126 mm[Hg] Status: Comments: Location: ; Position: BP Diastolic 84 mm[Hg] Status: Comments: Location: ; Position: Heart Rate 84 /min Status: Comments: Location: ; Physical Findings 14 Status: Comments: Respiration Weight 222 lb Status: Body Mass Index Calculated 30.96 kg/m2 Status: Body Surface Area Calculated 2.2 m2 Status: Results Date Description Value Details 12-Sep-2016 11:04 XRay CHEST-PA & LAT Comments: Exam Date: 09/12/2016 10: 00Dictation Date: 09/12/2016 11:04 X CHEST PA & LAT Plan of Care Name Dates Details Planned Observations Planned Goals not documented Planned Encounters Appointment; Provider: Jorge A Daugherty M.D. On 26-Nov-2016 08:15 Interventions Provided Medication Changes* LevoFLOXacin 500 MG Oral Tablet - Start * PredniSONE 10 MG Oral Tablet - Start Labs/Procedures/Imaging* XRay CHEST-PA & LAT; Done: Sep 12 2016 11:04AM Instructions Name Dates Details Instructions not documented Encounters Appointment; Jorge A Daugherty M.D. Encounter Diagnosis: Problem not documented On 29-Aug-2016 08:15 Appointment; Jorge A Daugherty M.D. Encounter [...]
--- OUTSIDE RECORDS SUMMARY | 2016-11-19 19:54 | XMS REPORT | Summary of Care ---
Author Author Jorge A Daugherty M.D. Organization Unknown Address [address] [place], [place] [id number] Phone Unavailable Care Team Providers Care Ad Clerk Name Role Phone Jorge A Daugherty M.D. [...] on:08-Jul-2013 Fluzone High-Dose Intramuscular Suspension Lot #: [id number] Administered on:22-Jun-2014 Prevnar 13 Intramuscular Suspension Lot #: [id number] Administered on:22-Jun-2014 Tdap (Adacel) Lot #: [id number] Administered on: Fluzone High-Dose Intramuscular Suspension Lot #: [id number] Administered on:25-Apr-2015 Family History Unknown Family Member* [...] smoker Vital Signs Date Test Result Details 21-Nov-2015 08:18 BP Systolic 128 mm[Hg] Status: BP Diastolic 84 mm[Hg] Status: Temperature 98.4 f Status: Heart Rate 73 /min Status: Respiration Rate 16 /min Status: Weight 218 lb Status: O2 SAT 94 % Status: Body Mass Index Calculated 28.76 kg/m2 Status: Body Surface Area Calculated 2.23 m2 Status: Results Date Description Value Details Results not documented Plan of Care Planned Observations* Name Dates Details Planned Goals not documented Goal Planned Encounters* Appointment; Provider: Jorge A Daugherty On 08:15 Instructions * Instructions not documented Encounters Appointment; Jorge A Daugherty Diagnosis: Problem not documented On 21-Nov-2015 08:15 Appointment; Jorge A Daugherty Diagnosis: Problem not documented On 07-Nov-2015 09:15 Appointment; Jorge A Daugherty Diagnosis: Problem not documented On 08-Aug-2015 10:30 Appointment; Sam Pennington Encounter Diagnosis: Problem not documented On 10-May-2015 08:30 Appointment; Jorge A Daugherty Diagnosis: Problem not documented On 25-Apr-2015 08:45 Appointment; Jorge A Daugherty Diagnosis: Problem not documented On 09:00 Appointment; Jorge A Daugherty Diagnosis: Problem not documented On 09:00 Appointment; Jorge A Daugherty Encounter Diagnosis: Problem not documented On 09:00 Appointment; Jorge A Daugherty Diagnosis: Problem not documented On 08:45 Appointment; Jorge A Daugherty Diagnosis: Problem not documented On 06-Dec-2014 09:30 Appointment; Jorge A Daugherty Diagnosis: Problem not documented On 29-Nov-2014 11:00 [...]
--- OUTSIDE RECORDS SUMMARY | 2016-11-19 19:54 | XMS REPORT | Summary of Care ---
Author Author Sam Pennington M.D. Unknown Address [address] [place], [place] [address] Phone Unavailable Care Team Providers Care Parole Or Probation Officer Name Role Phone Jorge A Daugherty M.D. [...] on:08-Jul-2013 Fluzone High-Dose Intramuscular Suspension Lot #: [id number] Administered on:22-Jun-2014 Prevnar 13 Intramuscular Suspension Lot #: [id number] Administered on:22-Jun-2014 Family History Unknown Family Member* [...]
--- OUTSIDE RECORDS SUMMARY | 2016-11-19 19:55 | XMS REPORT | Summary of Care ---
Author Author Sam Pennington M.D. Unknown Address [address], [place] [id number] Phone Unavailable Care Team Providers Care Director Of Quantitative Research Name Role Phone Jorge A Daugherty M.D. [...] obstructive pulmonary disease (496, J44.9) Status: Active Memory loss (780.93, R41.3) Status: [...] Active3 ML Plas Cont (60 Plas Conts) ProAir HFA 108 (90 Base) MCG/ACT Inhalation Aerosol Solution 2 PUFFS EVERY 4 TO 6 HOURS NEEDED * Quantity: 3 Refills: 1 Jorge A Daugherty M.D.* Started 23-Jul-2012 Active8.5 GM Inhaler Stool Softener 100 MG Oral [...] on:08-Jul-2013 Fluzone High-Dose Intramuscular Suspension Lot #: [id number] Administered on:22-Jun-2014 Prevnar 13 Intramuscular Suspension Lot #: [id number] Administered on:22-Jun-2014 Tdap (Adacel) Lot #: [id number] Administered on: Fluzone High-Dose Intramuscular Suspension Lot #: [id number] Administered on:25-Apr-2015 Family History Unknown Family Member* [...] smoker Vital Signs Date Test Result Details 10-May-2015 08:33 BP Systolic 140 mm[Hg] Status: BP Diastolic 80 mm[Hg] Status: Heart Rate 76 /min Status: Weight 211 lb Status: Body Mass Index Calculated 27.84 kg/m2 Status: Body Surface Area Calculated 2.2 m2 Status: 25-Apr-2015 08:42 BP Systolic 132 mm[Hg] Status: [...] * Appointment; Provider: Jorge A Daugherty On 01-Aug-2015 10:00 Instructions * Instructions not documented Encounters Appointment; [...]
--- OUTSIDE RECORDS SUMMARY | 2016-11-19 19:55 | XMS REPORT | Summary of Care ---
Author Author Jorge A Daugherty M.D. Organization Unknown Address Unknown Phone Unavailable Care Team Providers Care Quick Service Technician Name Role Phone Jorge A Daugherty [...] (gastroesophageal reflux disease) (530.81, K21.9) Status: Active Hyperlipidemia (272.4, E78.5) Status: Active [...] on: 08-Jul-2013 Fluzone High-Dose SUSP Lot #: [id number] on: 22-Jun-2014 Prevnar 13 Intramuscular Suspension Lot #: [id number] on: 22-Jun-2014 Tdap (Adacel) Lot #: [id number] on: Fluzone High-Dose SUSP Lot #: [id number] on: 25-Apr-2015 Fluzone High-Dose 0.5 ML Intramuscular Suspension Prefilled Syringe Lot #: [id number] on: 29-May-2016 Pneumo (Pneumovax) Lot #: [id number] on: 29-May-2016 Family History Name Dates Details [...]
--- OUTSIDE RECORDS SUMMARY | 2016-11-19 19:55 | XMS REPORT | Summary of Care ---
Author Author Jorge A Daugherty M.D. Organization Unknown Address [address] [place], [place] [id number] Phone Unavailable Care Team Providers Care Lab Intern Name Role Phone Jorge A Daugherty M.D. [...] on:08-Jul-2013 Fluzone High-Dose Intramuscular Suspension Lot #: [id number] Administered on:22-Jun-2014 Prevnar 13 Intramuscular Suspension Lot #: [id number] Administered on:22-Jun-2014 Tdap (Adacel) Lot #: [id number] Administered on: Fluzone High-Dose Intramuscular Suspension Lot #: [id number] Administered on:25-Apr-2015 Family History Unknown Family Member* [...] not documented Goal Planned Encounters* Appointment; Provider: aSm Pennington On 08-Nov-2015 09:30 * Appointment; Provider: [...]
--- OUTSIDE RECORDS SUMMARY | 2016-11-19 19:55 | XMS REPORT | Summary of Care ---
Author Author Jorge A Daugherty M.D. Organization Unknown Address Unknown Phone Unavailable Care Team Providers Care Scale Expert Name Role Phone Jorge A Daugherty M.D. [...] Quantity: 3 Refills: 1 Jorge A Daugherty M.D. * Start 23-Jul-2012 [...] on: 08-Jul-2013 Fluzone High-Dose SUSP Lot #: [id number] on: 22-Jun-2014 Prevnar 13 Intramuscular Suspension Lot #: [id number] on: 22-Jun-2014 Tdap (Adacel) Lot #: [id number] on: Fluzone High-Dose SUSP Lot #: [id number] on: 25-Apr-2015 Fluzone High-Dose 0.5 ML Intramuscular Suspension Prefilled Syringe Lot #: [id number] on: 29-May-2016 Pneumo (Pneumovax) Lot #: [id number] on: 29-May-2016 Family History Name Dates Details [...] smoker Vital Signs Date Test Result Details 29-May-2016 08:19 BP Systolic 128 mm[Hg] Status: Comments: Location: ; Position: BP Diastolic 86 mm[Hg] Status: Comments: Location: ; Position: Heart Rate 88 /min Status: Comments: Location: ; Physical Findings 14 Status: Comments: Respiration Weight 220 lb Status: Body Mass Index Calculated 29.03 kg/m2 Status: Body Surface Area Calculated 2.24 m2 Status: Results Date Description Value Details Results not documented Plan of Care Name Dates Details Planned Observations Planned Goals not documented Planned Encounters Appointment; Provider: Jorge A Daugherty M.D. On 29-Aug-2016 08:15 Appointment; Provider: Jorge A Daugherty M.D. On 02-Jul-2016 08:15 Interventions Provided Medications/Immunizations Administered* Fluzone High-Dose 0.5 ML Intramuscular Suspension Prefilled Syringe; Done: 29 May 2016 * Pneumo (Pneumovax); Done: 29 May 2016 Instructions Name Dates Details Instructions not documented [...]
--- OUTSIDE RECORDS SUMMARY | 2016-11-19 19:55 | XMS REPORT | Summary of Care ---
Author Author Jorge A Daugherty M.D. Organization Unknown Address Unknown Phone Unavailable Care Team Providers Care Clinical Appeals Auditor Name Role Phone Jorge A Daugherty M.D. [...] Active Chronic constipation (564.00, K59.09) Status: Active Screening for AAA (abdominal aortic aneurysm) (V81.2, Z13.6) Status: Active Medicare annual wellness visit, initial (V70.0, Z00.00) Status: Active Medications Name Dates Details PriLOSEC [...] Of Clavicular Fracture History of Cataract Extraction ULTRASOUND AORTA AAA SCREENING MEDICARE PATIENT Ordered: 02-Jul-2016 Immunization Name Dates Details Influenza on: 16-Sep-2009 Influenza A (H1N1) Monoval PF SUSP on: 16-Sep-2009 Pneumo (Pneumovax) on: 16-Sep-2009 Influenza on: 24-Apr-2011 Zoster (Zostavax) on: 19-Aug-2012 Influenza on: 08-Jul-2013 Fluzone High-Dose SUSP Lot #: [id number] on: 22-Jun-2014 Prevnar 13 Intramuscular Suspension Lot #: [id number] on: 22-Jun-2014 Tdap (Adacel) Lot #: [id number] on: Fluzone High-Dose SUSP Lot #: [id number] on: 25-Apr-2015 Fluzone High-Dose 0.5 ML Intramuscular Suspension Prefilled Syringe Lot #: [id number] on: 29-May-2016 Pneumo (Pneumovax) Lot #: [id number] on: 29-May-2016 Family History Name Dates Details [...] smoker Vital Signs Date Test Result Details 02-Jul-2016 08:11 BP Systolic 126 mm[Hg] Status: Comments: Location: ; Position: BP Diastolic 88 mm[Hg] Status: Comments: Location: ; Position: Heart Rate 86 /min Status: Comments: Location: ; Physical Findings 14 Status: Comments: Respiration Height 71 in Status: Weight 223 lb Status: Body Mass Index Calculated 31.1 kg/m2 Status: Body Surface Area Calculated 2.21 m2 Status: Results Date Description Value Details Results not documented Plan of Care Name Dates Details Planned Observations Planned Goals not documented Planned Encounters Appointment; Provider: Jorge A Daugherty M.D. On 29-Aug-2016 08:15 Interventions Provided Labs/Procedures/Imaging* ULTRASOUND AORTA AAA SCREENING MEDICARE PATIENT; To be Done: 02 Jul 2016 Instructions Name Dates Details Instructions not [...]
--- OUTSIDE RECORDS SUMMARY | 2016-11-19 19:55 | XMS REPORT | Summary of Care ---
Author Author Jorge A Daugherty M.D. Unknown Address [address], [place] [address] Phone Unavailable Care Team Providers Care Billing Clerk Name Role Phone Jorge A Daugherty [...] Active Contact dermatitis (692.9, L25.9) Status: Active Medications Name Dates Details PriLOSEC [...] 3 Jorge A Daugherty M.D.* Started 10-Nov-2013 ActiveProventil HFA 108 (90 Base) MCG/ACT Inhalation Aerosol Solution 2 PUFFS EVERY 4 TO 6 HOURS NEEDED * Quantity: 1 Refills: 4 Jorge A Daugherty M.D.* Started 23-Jul-2012 Active6.7 GM Inhaler Albuterol Sulfate (2.5 MG/3ML) 0.083% Inhalation Nebulization Solution USE 1 UNIT DOSE VIA NEBULIZER 4 TIMES A DAY NEEDED * Quantity: 1 Refills: 0 Jorge A Daugherty M.D.* Started 23-Jul-2012 Active3 ML Plas Cont (60 Plas Conts) Allergies and Adverse Reactions Name Dates Details No Known Drug Allergies Status: Active Procedures Procedure Dates Details History of Appendectomy History of Complete Colonoscopy For Polyp Removal Completed:16-Oct-2012 Procedures not documented Immunization Name Dates Details Influenza Administered on:16-Sep-2009 Influenza A (H1N1) Monoval PF Intramuscular Suspension Administered on:16-Sep-2009 Pneumo (Pneumovax) Administered on:16-Sep-2009 Influenza Administered on:24-Apr-2011 Zoster (Zostavax) Administered on:19-Aug-2012 Influenza Administered on:08-Jul-2013 Fluzone High-Dose Intramuscular Suspension Lot #: [id number] Administered on:22-Jun-2014 Prevnar 13 Intramuscular Suspension Lot #: [id number] Administered on:22-Jun-2014 Family History Unknown Family Member* [...] Encounters* Appointment; Provider: Jorge A Daugherty On 29-Sep-2014 09:15 Instructions * Instructions not documented Encounters Appointment; [...] On 18-Mar-2013 08:45 Appointment; Jorge A Daugherty Encounter Diagnosis: Problem not documented On 17-Nov-2012 09:00 Appointment; Nell Aggarwal Encounter Diagnosis: Problem not documented On 16-Oct-2012 08:00 Appointment; Kathy Esteves Encounter Diagnosis: Problem not documented On 16-Oct-2012 07:15 Appointment; Jorge A Daughrety Encounter Diagnosis: Problem not documented On 29-Sep-2012 13:00 Appointment; Jorge A Daugherty Encounter Diagnosis: Problem not documented On 16-Sep-2012 08:45
--- OUTSIDE RECORDS SUMMARY | 2016-11-19 19:55 | XMS REPORT | Summary of Care ---
Author Author Jorge A Daugherty M.D. Unknown Address [address] [place], [place] [address] Phone Unavailable Care Team Providers Care Finisher Denture Name Role Phone Jorge A Daugherty M.D. [...] Refills: 0 Jorge A Daugherty M.D.* Started [id number] Tablet Disp Pack Levofloxacin 500 MG Oral [...] on:08-Jul-2013 Fluzone High-Dose Intramuscular Suspension Lot #: [id number] Administered on:22-Jun-2014 Prevnar 13 Intramuscular Suspension Lot #: [id number] Administered on:22-Jun-2014 Tdap (Adacel) Lot #: [id number] Administered on: Family History Unknown Family Member* [...] smoker Vital Signs Date Test Result Details 08:48 BP Systolic 128 mm[Hg] Status: BP Diastolic 92 mm[Hg] Status: Heart Rate 90 /min Status: Respiration Rate 20 /min Status: Weight 208 lb Status: Body Mass Index Calculated 27.44 kg/m2 Status: Body Surface Area Calculated 2.19 m2 Status: 08:57 BP Systolic 124 mm[Hg] Status: BP Diastolic 84 mm[Hg] Status: Heart Rate 74 /min Status: Respiration Rate 20 /min Status: Weight 215 lb Status: Body Mass Index Calculated 28.37 kg/m2 Status: Body Surface Area Calculated 2.22 [...]
--- OUTSIDE RECORDS SUMMARY | 2016-11-19 19:55 | XMS REPORT | Summary of Care ---
Author Author Jorge A Daugherty M.D. Organization Unknown Address Unknown Phone Unavailable Care Team Providers Care Record Label Intern Name Role Phone Jorge A Daugherty [...] on: 08-Jul-2013 Fluzone High-Dose SUSP Lot #: [id number] on: 22-Jun-2014 Prevnar 13 Intramuscular Suspension Lot #: [id number] on: 22-Jun-2014 Tdap (Adacel) Lot #: [id number] on: Fluzone High-Dose SUSP Lot #: [id number] on: 25-Apr-2015 Family History Name Dates Details [...]
--- OUTSIDE RECORDS SUMMARY | 2016-11-19 19:56 | XMS REPORT | Summary of Care ---
Author Author Jorge A Daugherty M.D. Unknown Address [address] [place], [place] [address] Phone Unavailable Care Team Providers Care Textile Engineer Name Role Phone Jorge A Daugherty M.D. [...] Active Chronic constipation (564.00, K59.00) Status: Active Abdominal pain (789.00, R10.9) Status: [...] @ HS prn * Refills: 0 Jasen Nell Gunnar* Started 16-Oct-2012 ActiveAtorvastatin Calcium 80 MG Oral [...] Clavicular Fracture Neuro Dementia Profile 9011 Ordered:26-Oct-2014 BASIC METABOLIC PROFILE 1210 Ordered:29-Nov-2014 CBC w/ Auto Diff 7150 Ordered:29-Nov-2014 Urinalysis, Reflex to Microscopic or Culture PRN 8005 Ordered:29-Nov-2014 CT AB/ PEL WITH IV AND ORAL CONTRAST Ordered:29-Nov-2014 Immunization Name Dates Details Influenza Administered on:16-Sep-2009 Influenza A (H1N1) Monoval PF Intramuscular Suspension Administered on:16-Sep-2009 Pneumo (Pneumovax) Administered on:16-Sep-2009 Influenza Administered on:24-Apr-2011 Zoster (Zostavax) Administered on:19-Aug-2012 Influenza Administered on:08-Jul-2013 Fluzone High-Dose Intramuscular Suspension Lot #: [id number] Administered on:22-Jun-2014 Prevnar 13 Intramuscular Suspension Lot #: [id number] Administered on:22-Jun-2014 Family History Unknown Family Member* [...] smoker Vital Signs Date Test Result Details 29-Nov-2014 10:40 BP Systolic 112 mm[Hg] Status: BP Diastolic 76 mm[Hg] Status: Heart Rate 72 /min Status: Respiration Rate 18 /min Status: Weight 217 lb Status: Body Mass Index Calculated 28.63 kg/m2 Status: Body Surface Area Calculated 2.23 m2 Status: 05-Nov-2014 10:08 BP Systolic 140 mm[Hg] Status: [...]
--- OUTSIDE RECORDS SUMMARY | 2016-11-19 19:56 | XMS REPORT | Summary of Care ---
Author Author Jorge A Daugherty M.D. Organization Unknown Address [address], [place] [phone] Phone Unavailable Care Team Providers Care Auto Crane Driver Name Role Phone Jorge A Daugherty M.D. [...] on:08-Jul-2013 Fluzone High-Dose Intramuscular Suspension Lot #: [id number] Administered on:22-Jun-2014 Prevnar 13 Intramuscular Suspension Lot #: [id number] Administered on:22-Jun-2014 Tdap (Adacel) Lot #: [id number] Administered on: Fluzone High-Dose Intramuscular Suspension Lot #: [id number] Administered on:25-Apr-2015 Family History Unknown Family Member* [...] Appointment; Provider: Jorge A Daugherty On 08:15 * Appointment; Provider: Jorge A Daugherty On 21-Nov-2015 08:15 Instructions * Instructions not documented Encounters [...]
--- OUTSIDE RECORDS SUMMARY | 2016-11-19 19:56 | XMS REPORT | Summary of Care ---
Author Author Sam Pennington M.D. Unknown Address [address] [place], [place] [address] Phone Unavailable Care Team Providers Care Information Systems Architect Name Role Phone Jorge A Daugherty M.D. [...] on:08-Jul-2013 Fluzone High-Dose Intramuscular Suspension Lot #: [id number] Administered on:22-Jun-2014 Prevnar 13 Intramuscular Suspension Lot #: [id number] Administered on:22-Jun-2014 Family History Unknown Family Member* [...] ml/min (Better) Range: >60 EST GFR, NON-AFR COMORAN >60 ml/min (Better) Range: >60 Comments: EST GFR is reported in ml/min per 1.73 m2 of body surface area. For -Canadian, please multiple result by 1.2.----- GLUCOSE 95 [...]
--- OUTSIDE RECORDS SUMMARY | 2016-11-19 19:56 | XMS REPORT | Summary of Care ---
Author Author Jorge A Daugherty M.D. Organization Unknown Address [address] [place], [place] [address] Phone Unavailable Care Team Providers Care Site Head Name Role Phone Jorge A Daugherty M.D. [...] Active Memory loss (780.93, R41.3) Status: Active COPD with exacerbation (491.21, J44.1) Status: Active Chronic obstructive pulmonary disease (496, J44.9) Status: Active GERD (gastroesophageal reflux disease) (530.81, K21.9) Status: Active Dyslipidemia (272.4, E78.5) Status: Active Easy bruising (782.9, R23.8) Status: Active Medications Name Dates Details PriLOSEC [...] on:08-Jul-2013 Fluzone High-Dose Intramuscular Suspension Lot #: [id number] Administered on:22-Jun-2014 Prevnar 13 Intramuscular Suspension Lot #: [id number] Administered on:22-Jun-2014 Tdap (Adacel) Lot #: [id number] Administered on: Fluzone High-Dose Intramuscular Suspension Lot #: [id number] Administered on:25-Apr-2015 Family History Unknown Family Member* [...] m2 Status: Results Date Description Value Details 07-Nov-2015 09:33 CBC w/ Auto Diff 7150 WBC 7.1 K/uL (Better) Range: 4.5-11.0 RBC 5.06 mil/uL (Better) Range: 4.20-5.40 HGB 16.0 g/dL (Better) Range: 14.0-18.0 HCT 45.7 % (Better) Range: 42.0-53.0 MCV 90.2 fL (Better) Range: 80.0-99.0 MCH 31.7 pg (Better) Range: 27.3-32.5 MCHC 35.1 % (Better) Range: 32.0-36.0 RDW 12.7 % (Better) Range: 11.6-14.8 PLATELETS 165 K/uL (Better) Range: 150-400 MPV 7.6 fL (Better) Range: 6.0-11.0 %NEUTRO 57.2 % (Better) Range: 37.0-80.0 %LYMPHS 30.9 % (Better) Range: 13.0-50.0 %MONO 5.8 % (Better) Range: 0.0-12.0 %EOS 2.8 % (Better) Range: 0.0-7.0 %BASO 0.5 % (Better) Range: 0.0-2.5 %ALESHIA 2.9 % (Better) Range: 0.0-5.0 NEUTRO 4.1 K/uL (Better) Range: 2.0-6.9 LYMPHS 2.2 K/uL (Better) Range: 0.6-3.4 MONOS 0.4 K/uL (Better) Range: 0.0-0.9 EOS 0.2 K/uL (Better) Range: 0.0-0.7 BASO 0.0 K/uL (Better) Range: 0.0-0.2 Plan of Care Planned Observations* Name Dates [...]
--- OUTSIDE RECORDS SUMMARY | 2016-11-19 19:56 | XMS REPORT | Summary of Care ---
Author Author Jorge A Daugherty M.D. Organization Unknown Address Unknown Phone Unavailable Care Team Providers Care Healthcare Business Analyst Name Role Phone Jorge A Daugherty M.D. Unavailable Unavailable Ten Aggarwal M.D. Unavailable Unavailable Jorge A Daugherty Unavailable Unavailable Unavailable Unavailable Functional Status Name Dates Details Functional status health issues are not documented Status: Name Dates Details Cognitive status health issues are not documented Status: Problems Name Dates Details Chronic constipation (564.00, K59.09) Status: Active Memory loss (780.93, R41.3) Status: Active GERD (gastroesophageal reflux disease) (530.81, K21.9) Status: Active Chronic obstructive pulmonary disease (496, [...] on: 08-Jul-2013 Fluzone High-Dose SUSP Lot #: [id number] on: 22-Jun-2014 Prevnar 13 Intramuscular Suspension Lot #: [id number] on: 22-Jun-2014 Tdap (Adacel) Lot #: [id number] on: Fluzone High-Dose SUSP Lot #: [id number] on: 25-Apr-2015 Fluzone High-Dose 0.5 ML Intramuscular Suspension Prefilled Syringe Lot #: [id number] on: 29-May-2016 Pneumo (Pneumovax) Lot #: [id number] on: 29-May-2016 Family History Name Dates Details [...]
--- OUTSIDE RECORDS SUMMARY | 2016-11-19 19:56 | XMS REPORT | Summary of Care ---
Author Author Jorge A Daugherty M.D. Organization Unknown Address Unknown Phone Unavailable Care Team Providers Care Manager Strategic Alliances Name Role Phone Jorge A Daugherty M.D. [...] Active Memory loss (780.93, R41.3) Status: Active Dyslipidemia (272.4, E78.5) Status: Active GERD (gastroesophageal reflux disease) (530.81, K21.9) Status: Active COPD with exacerbation (491.21, J44.1) [...] prn * Refills: 0 Jasen Maher, Nell Ten * Start 16-Oct-2012 Active Atorvastatin Calcium 80 [...] on: 08-Jul-2013 Fluzone High-Dose SUSP Lot #: [id number] on: 22-Jun-2014 Prevnar 13 Intramuscular Suspension Lot #: [id number] on: 22-Jun-2014 Tdap (Adacel) Lot #: [id number] on: Fluzone High-Dose SUSP Lot #: [id number] on: 25-Apr-2015 Family History Name Dates Details [...]
--- OUTSIDE RECORDS SUMMARY | 2016-11-19 19:56 | XMS REPORT | Summary of Care ---
Author Author Sam Pennington M.D. Unknown Address [address], [place] [id number] Phone Unavailable Care Team Providers Care Dba Name Role Phone Jorge A Daugherty M.D. [...] on:08-Jul-2013 Fluzone High-Dose Intramuscular Suspension Lot #: [id number] Administered on:22-Jun-2014 Prevnar 13 Intramuscular Suspension Lot #: [id number] Administered on:22-Jun-2014 Family History Unknown Family Member* [...]
[2016-11-19] MEDS ORDERED: ALBUTEROL/IPRATROPIUM INHAL. 2.5mg-0.5mg/3ml Neb. AEROSOL ONE (20:00)
[2016-11-19] MEDS: NITROGLYCERIN 0.4 MG SUBLINGUAL TABLET SL PRN ×3 (20:00→21:11)
[2016-11-19] MEDS ORDERED: ASPIRIN 81 MG CHEWABLE TABLET PO ONE (20:00)
[2016-11-19] MEDS ORDERED: FENTANYL 100mcg/2ml INJECTION IV ONE (20:00)
--- NOTE | 2016-11-19 20:05 | NUR ---
REPORT GIVEN TO ELSA SNYDER AT THIS TIME.
--- NOTE | 2016-11-19 20:06 | ERPDOC ---
Departure Disposition Decision Date: Nov 19, 2016 Disposition Decision Time: 21:58 Disposition: [address] [facility] Impression Impression Impression: Primary Impression: Chest pain at rest Severity: Severe Condition: Improved Seen By: Physician only Problems/Meds/Labs Reviewed?: Yes Medications reviewed and manag: Yes Follow up care ordered?: Yes Mental Status: Alert HPI - Chest Pain General Stated Complaint: CHEST PAIN Time Seen by Provider: 19:51 Source: patient, family Exam Limitations: no limitations HPI - Chest Pain Initial Comments Pt was talking on the phone 90 min ago when he has the sudden onset of severe substernal chest pain. Pain is sharp and stabbing/cramping. Worsens with movement of deep inspiration. Patient has history of "lung congestion, that appears to be COPD per the patient 's history medications. Patient has high cholesterol and hypertension, but is never had a heart attack to his knowledge. Not taking any medications for GERD, but occasionally has heartburn Occurred At: home Onset/Timing: Rapid Duration: 1-3 hrs Activities at Onset/Context: rest Location: substernal Quality: cramping, sharp Chest Pain Radiation: no radiation Nitro Today/Relief: provided by ED Aspirin Treatment Today: 81 mg x 4, provided by ED Prior Chest Pain/Cardiac Xiomara: non-cardiac Hx of Similar Symptoms: No Allergies: Coded Allergies: No Known Allergies (Unverified , 11/19/16) Viagra/ED med in past 36 hrs: No Past History Past Medical History Metabolic: hypercholesterolemia Respiratory: COPD Surgical History General: appendix, other, tonsils Social History Smoking Status: Never smoker Does patient use chewing tobac: No Second Hand Exposure: No Substance Use Type: does not use Alcohol Intake: none Record Review Pertinent history updated: Yes Review of Systems Constitutional Constitutional: DENIES: appetite decrease, appetite increase, chills, dizziness , fever, weakness ENMT Ears: DENIES: pain Hearing: DENIES: hearing loss, tinnitus Balance: DENIES: vertigo Mouth/Throat: DENIES: change in swallowing, change in voice, hoarsness, painful swallowing, sore throat Cardiovascular Cardiac: chest pain, DENIES: dyspnea on exertion Rhythm/Rate: DENIES: irregular beat, palpitations, tachycardia Vascular: DENIES: pedal edema Pulmonary Respiratory: dyspnea, DENIES: cough, exposure to TB, hyperventilation, last PPD , pleuritic chest pain, pneumonia hx, recent risky activities, sputum, tachypnea GI Upper Abdomen: DENIES: dysphagia, heartburn/indigestion, nausea, pain, vomiting Lower Abdomen: DENIES: blood in stool, constipation, diarrhea, pain General: DENIES: burning, dysuria, frequency, pain, urgency Musculoskeletal General: DENIES: cramps, joint pain, joint swelling, pain, weakness Integumentary Skin: DENIES: rash, sores Neurological General: DENIES: headache, numbness, tingling, vertigo, weakness Psychiatric Psychiatric: DENIES: anxiety, depression, nervousness Physical Exam General General Nourishment: well nourished, well developed, appears stated age Distress Description Patient appears in severe distress, cannot take a deep breath due to sharp spasmodic pains in the center of his chest. General Body Habitus: well groomed Vitals and Pain First Documented Vital Signs Date Time Temp Pulse Resp B/P Pulse Ox O2 Delivery O2 Flow Rate FiO2 11/19/16 19:49 97.9 94 28 165/95 92 Room Air 11/19/16 20:17 2.00 Weight: Kilograms: Height (feet): Height (inches): Triage Pain Scale: RN VS reviewed by Provider: Yes Normal Exams: Head: Normocephalic w/o trauma Eyes: Pupils are PERRLA w/ EOMI, No scleral icterus, irritation, or foreign bodies noted ENMT: No facial trauma, nasal exudates, pharyngeal erythema, or exudates are noted Neck: Full range of motion, without adenopathy, JVD, bruits or thyromegaly Respiratory (brief) Respiratory: FOUND: equal bilaterally, symmetrical, wheezes, NOT FOUND: clear all chang (course wheezes bilaterally with decreased air movement), rales, tenderness Cardiovascular (brief) Cardiac: FOUND: regular rate, regular rhythm, NOT FOUND: click, gallop, murmur , pedal edema Capillary Refill: <2 sec Pulses: all distal extremities, equal, strong Abdomen (brief) Abdominal Brief: FOUND: bowel normo active x4, soft, NOT FOUND: distended, hepatosplenomegaly, tender Lymphatic (brief) Lymphatic Brief: NOT FOUND: adenopathy, lymphedema Musculoskeletal (brief) Musculoskeletal Brief: NOT FOUND: deformity, loss of motion, spasm, tenderness Integumentary (brief) Integumentary Brief: FOUND: dry, pink, warm Neurologic (brief) Neurological Brief: FOUND: CN w/o gross def to obs, motor-no gross deficits, sensory-no gross deficits Psychiatric (brief) Psychiatric Brief: FOUND: alert, attentive, normal affect, oriented Progress Results/Orders Orders Procedure Category Date Status Time Cbc W/Auto LAB 11/19/16 Complete Diff-Reflex Manual 19:58 Cmp - Comprehensive LAB 11/19/16 Complete Metabolic 19:58 Probnp LAB 11/19/16 Complete 19:58 Troponin I W LAB 11/19/16 Complete Hemolysis Index 19:58 INR LAB 11/19/16 Complete 19:58 EKG EKG 11/19/16 Taken 19:58 Chest 1 View RAD 11/19/16 Taken 19:58 Iv Lock (Ed Only) EDM 11/19/16 Transmitted 19:58 Aspirin (Asa) PHA 11/19/16 Complete 20:00 Nitroglycerin PHA 11/19/16 Complete (Nitrostat) 20:00 Fentanyl (Fentanyl) PHA 11/19/16 Complete 20:00 Albuterol/Ipratropium PHA 11/19/16 Complete (Duoneb) 20:00 Lab Results Laboratory Tests Test 11/19/16 20:05 White Blood Count 10.2T/MM3 Red Blood Count 5.12M/MM3 Hemoglobin 15.9GM/DL Hematocrit 46.7% Mean Corpuscular Volume 91.2UM3 Mean Corpuscular Hemoglobin 31.1UUG Mean Corpuscular Hemoglobin Concent 34.0GM/DL RDW Standard Deviation 47.0FL Platelet Count 195T/MM3 Mean Platelet Volume 9.9UM3 Immature Granulocyte % (Auto) 0.2% Neutrophils (%) (Auto) 60.0% Lymphocytes (%) (Auto) 28.6% Monocytes (%) (Auto) 7.4% Eosinophils (%) (Auto) 3.4% Basophils (%) (Auto) 0.4% Absolute Immature Granulocyte (auto 0.02T/MM3 Absolute Neutrophils (auto) 6.1T/MM3 Absolute Lymphocytes (auto) 2.9T/MM3 Absolute Monocytes (auto) 0.8T/MM3 Absolute Eosinophils (auto) 0.4T/MM3 Absolute Basophils (auto) 0.0T/MM3 Prothromb Time International Ratio 0.99 Turbidity < 20 Sodium Level 140MEQ/L Potassium Level 4.7MEQ/L Chloride Level 102MEQ/L Carbon Dioxide Level 26MEQ/L Anion Gap 12MEQ/L Blood Urea Nitrogen 20.0MG/DL Creatinine 1.0MG/DL Glomerular Filtration Rate Calc 74 BUN/Creatinine Ratio 20RATIO Glucose Level 104MG/DL Calculated Osmolality 272MOSM/KG Calcium Level 9.4MG/DL Total Bilirubin 1.10MG/DL Icterus Index < 2 Aspartate Amino Transf (AST/SGOT) 29U/L Alanine Aminotransferase (ALT/SGPT) 26U/L Alkaline Phosphatase 102U/L Troponin I < 0.012ng/ml KA-Aft-L-Type Natriuretic Peptide 115PG/ML Total Protein 7.9G/DL Albumin 4.2G/DL Globulin 3.7G/DL Albumin/Globulin Ratio 1.1RATIO Chemistry Specimen Hemolysis 23 Medications Current ED Medications Aspirin (ASA) 324 mg O ONCE PO Last administered on 11/19/16 19:54; Start at 20:00; Stop 11/19/16 at 20:01; Status DC Nitroglycerin (Nitrostat) 0.4 mg Q5MIN PRN SL CHEST PAIN Last administered on 21:11; Start 11/19/16 at 20:00; Stop 11/19/16 at 21:11; Status DC Fentanyl (Fentanyl) 50 mcg O ONCE IV Last administered on 11/19/16 20:18; Start 11/19/16 at 20:00; Stop 11/19/16 at 20:01; Status DC Albuterol/ Ipratropium (Duoneb) 6 ml O ONCE AEROSOL Last administered on 20:06; Start 11/19/16 at 20:00; Stop 11/19/16 at 20:01; Status DC Progress Progress EKG shows a normal sinus rhythm without ischemia, ectopy, or infarction Patient given initial nitroglycerin, ASA, and 50 g of fentanyl - after 50 g of fentanyl and first nitroglycerin patient had pain relief from 8 down to 3 out of 10 on the then patient had additional 2 nitroglycerin to complete relief. Patient is able to reproduce a small amount of the pain by taking a deep breath and twisting his torso, while he lays still the patient is in no distress and has no discomfort. CBC - N CMP - N Troponin - N CXR - N Case is discussed with Carolina Dick for Dr. Tovar, will obs Call Loop for cp r/o DWAIN BAEZ MD Nov 19, 2016 20:06
[2016-11-19] MEDS ORDERED: ALBU8.5H INH (20:09)
[2016-11-19] MEDS ORDERED: IPRA12.9 INH (20:09)
[2016-11-19 20:15] LABS: BASOPHILS % (AUTO) 0.4 % (0-2); EOSINOPHILS # (AUTO) 0.4 T/MM3 (0-0.5); EOSINOPHILS % (AUTO) 3.4 % (0-4); HCT - HEMATOCRIT 46.7 % (41-53); HGB - HEMOGLOBIN 15.9 GM/DL (13.5-17.5); IMMATURE GRANULOCYTE # (AUTO) 0.02 T/MM3 (0.00-0.03); IMMATURE GRANULOCYTE % (AUTO) 0.2 % (0.0-0.5); LYMPHOCYTES # (AUTO) 2.9 T/MM3 (1-4.8); LYMPHOCYTES % (AUTO) 28.6 % (23-45); MEAN CORPUSCULAR HGB 31.1 UUG (26-34); MEAN CORPUSCULAR VOLUME 91.2 UM3 (80-100); MEAN PLATELET VOLUME 9.9 UM3 (9.4-12.4); MONOCYTES # (AUTO) 0.8 T/MM3 (0-0.8); MONOCYTES % (AUTO) 7.4 % (0-9.0); NEUTROPHILS #(AUTO)-ABSOLUTE 6.1 T/MM3 (1.8-7.7); RED BLOOD COUNT 5.12 M/MM3 (4.50-5.90); WBC - WHITE BLOOD COUNT 10.2 T/MM3 (4.5-11.0)
[2016-11-19 20:19] LABS: INR 0.99 (0.76-1.04); PROTHROMBIN TIME 10.8 SEC (9.31-12.49)
--- NOTE | 2016-11-19 20:19 | NUR ---
XRAY XRAY IN ROOM W/ PT FOR PORTABLE CHEST.
--- NOTE | 2016-11-19 20:53 | NUR ---
REPORT PT REPORT GIVEN TO CARLEY SNYDER.
[2016-11-19 20:54] LABS: ALBUMIN 4.2 G/DL (3.5-5.0); ALBUMIN/GLOBULIN RATIO 1.1 RATIO (1.1-2.2); ALKALINE PHOSPHATASE 102 U/L (38-126); ALT (SGPT) 26 U/L (21-72); ANION GAP 12 MEQ/L (5-15); AST (SGOT) 29 U/L (17-59); BUN/CREATININE RATIO 20 RATIO (6-26); CALCIUM 9.4 MG/DL (8.4-10.2); CHLORIDE 102 MEQ/L (98-107); CO2 - CARBON DIOXIDE 26 MEQ/L (22-30); GLOMERULAR FILTRATION RATE 74; GLUCOSE 104 MG/DL (75-110); POTASSIUM 4.7 MEQ/L (3.6-5); SODIUM 140 MEQ/L (134-144); TOTAL PROTEIN 7.9 G/DL (6.3-8.2)
[2016-11-19 21:05] LABS: PROBNP 115 PG/ML (0-175)
--- NOTE | 2016-11-19 21:11 | NUR ---
SL MEDS PT GIVEN NTG X3 CHARTED W/ PAIN RELIEF TO 08/07.
[2016-11-19] MEDS ORDERED: NITROGLYCERIN 0.4 MG SUBLINGUAL TABLET SL PRN (22:00)
[2016-11-19] MEDS ORDERED: MORPHINE SULFATE 2 MG SYRINGE IV PRN (22:00)
--- NOTE | 2016-11-19 22:40 | NUR ---
ROOM ASSIGNED ROOM ASSIGNED 148 MEDICAL UNIT OBSERVATION AND TELEMETRY.
--- NOTE | 2016-11-19 23:12 | NUR ---
DEPART PT LEFT ER ADMIT TO MEDICAL OBSERVATION AND TELEMETRY. VIA CART W/ O2 2LPM N/C IN NO ACUTE DISTRESS ALERT, VS CHARTED AND PT CARE XFERED TO CARLEY SNYDER.
[2016-11-19 23:15] VITALS: Ht 185.4 cm; Wt 99.5 kg
--- NOTE | 2016-11-19 23:15 | NUR ---
ADMIT Pt brought to room 148 via cart from ER. Walked from tristan into bathroom and then to bed with SBA. A/O x3, denies chest pain at this time. 91% on 2L/NC, pt has a dry cough, lungs diminished with occasional wheeze noted. VSS, assessment as noted, at bedside. Oriented pt to call light, bed and room. Bed alarm in use.
[2016-11-19 23:35] VITALS: BP 137/80; PULSE 80; RESP 20; TEMP 96.3; O2SAT 91
[2016-11-20] VITALS (13 sets, daily range): BP systolic 121–152; BP diastolic 71–85; PULSE 71–88; RESP 15–22; TEMP 96.3–98.7; O2SAT 88–97
[2016-11-20] MEDS ORDERED: MORPHINE SULFATE 2 MG SYRINGE IV PRN (03:30)
[2016-11-20] MEDS ORDERED: NITROGLYCERIN 0.4 MG SUBLINGUAL TABLET SL PRN (03:30)
[2016-11-20] MEDS ORDERED: ONDANSETRON 4mg/2ml INJECTION IV PRN (03:30)
[2016-11-20 03:56] LABS: LDL CHOLESTEROL,CALCULATED 108.6 (66-159); RISK FACTOR 3.4 RATIO (0-5.0); VLDL CHOLESTEROL 14.4 MG/DL (0-28)
[2016-11-20 04:32] LABS: MAGNESIUM 2.2 MG/DL (1.6-2.3)
[2016-11-20] MEDS ORDERED: POLYETHYL.GLYCOL 3350 PACKET 17gm PO PRN (05:00)
[2016-11-20] MEDS ORDERED: ENOXAPARIN 100 MG/ML INJECTION SQ ONE (05:00)
[2016-11-20] MEDS ORDERED: DOCUSATE SODIUM 100 MG CAPSULE PO PRN (05:00)
[2016-11-20] MEDS ORDERED: ACETAMINOPHEN 325 MG TABLET PO PRN (05:00)
[2016-11-20] MEDS ORDERED: NAPROXEN 220 MG TABLET PO PRN (05:15)
[2016-11-20] MEDS ORDERED: NAPROXEN 220 MG TABLET PO ONE (05:15)
[2016-11-20] MEDS ORDERED: CALCIUM CARBONATE 750mg Chewable TAB PO PRN (05:15)
--- NOTE | 2016-11-20 05:18 | NUR ---
Status Pt up to BR, O2 removed by DISABILITY REPRESENTATIVE as sats were stable. Back to bed, c/o chest pain 2/10. Nitro given as instructed, BP/HR stable before and after. Sats 88%, O2 @ 2LNC applied. Pt states decrease in chest pain 0/10, but does hurt when he coughs. Resting in bed at this time, denies chest pain or SOA.
--- NOTE | 2016-11-20 05:52 | HPPDOC ---
HPI - Adult Date DATE: 11/20/16 TIME: 05:11 General Date of Admission Date of Admission: Nov 19, 2016 at 21:59 first face to face with Dr. Tovar on 11/20/2016 Chief Complaint: Chest pain History of Present Illness This is a 71 year old patient with history of COPD. Denies HTN, DSLD or cardiac issues. Has occasional GERD. About 20 yrs ago he had a heart cath in [place] and told his coronaries look good. His PCP is in [facility] which he goes to regularly. About 1 month ago he was diagnosed with pneumonia or bronchitis and was prescribed Levaquin and steroids. He still has an occasional cough. Last night about 1730 he was talking on the phone when he started to get SOB. Then he developed a sudden severe sharp right sided chest pain without radiation. he has never felt pain this bad before. He denies nausea, diaphoresis , palpitations, or lightheadedness. His brought him into [facility] ER. EKG shows a normal sinus rhythm without ischemia, ectopy, or infarction. trop neg. CBC, CMP, and BNP are all normal. CXR heart size normal, no effusions, possible congestion. In ER he was given initial nitroglycerin, ASA, and 50 g of fentanyl - after 50 g of fentanyl and first nitroglycerin patient had pain relief from 8 down to 3 out of 10 on the then patient had additional 2 nitroglycerin to complete relief. Patient is able to reproduce a small amount of the pain by taking a deep breath and twisting his torso, while he lays still the patient is in no distress and has no discomfort. the chest pain returns when he coughs. I can reproduce chest pain on palpation on the right side but not to the degree it hurt initially. We admitted pt as OBS for chest pain. Past Medical History Past Medical History Metabolic: hypercholesterolemia Respiratory: COPD Surgical History General: appendix, other, tonsils Current Medications Home Meds Reported Medications Albuterol Sulfate (Proair HFA 90 mcg/actuation) 8.5 Gm Hfa.aer.ad, 1 PUFF INH Q4H Y for PRN ORDERS 11/19/16 Ipratropium [place] (Atrovent Hfa) 200 Puff/12.9 G Inhaler, 2 PUFF INH QID 11/19/16 Allergies: Coded Allergies: No Known Allergies (Unverified , 11/19/16) Family History Family History Comments Father 85 of old age. Mother at 92 of old age. No family hx of CAD. Vaccines 2016 [id number] Social History Smoking Status: Former smoker Does patient use chewing tobac: No Second Hand Exposure: No Quit Date: Jul 29, 2004 Substance Use Type: does not use Alcohol Intake: none Marital Status: Sexuality: female partner Housing: house Household Members: spouse Current Occupational Status: retired Prior Occupation: [employer] in [employer] Advance Directives: Yes DPOA for Healthcare Only ([facility] ) Review of Systems Constitutional: DENIES: chills, dizziness, fever, syncope, weakness, weight gain, weight loss Eyes Vision: DENIES: blurring ENMT Mouth/Throat: DENIES: sore throat Cardiovascular chest pain, DENIES: dyspnea on exertion, orthopnea, paroxysmal nocturnal dysp Rhythm/Rate: DENIES: irregular beat, palpitations, tachycardia Vascular: DENIES: pedal edema Pulmonary Respiratory: cough, dyspnea GI Upper Abdomen: DENIES: nausea Lower Abdomen: DENIES: blood in stool, diarrhea General: DENIES: dysuria Musculoskeletal General: DENIES: edema, joint pain, pain, weakness Integumentary Skin: DENIES: rash, sores Nails: DENIES: cupping, pitting Neurological General: DENIES: headache, syncope, weakness Psychiatric Psychiatric: DENIES: anxiety, depression Hematologic/Lymphatic DENIES: easy bruising Physical Exam General General Nourishment: well nourished, well developed General Body Habitus: well groomed Vital Signs Vital Signs Date Time Temp Pulse Resp B/P Pulse Ox O2 Delivery O2 Flow Rate FiO2 11/20/16 00:05 88 20 11/19/16 23:35 96.3 137/80 91 Nasal Cannula 2.00 Height (Feet): 6 Height (Inches): 1.00 Telemetry Rhythm: Sinus Rhythm Eyes Brief: NOT FOUND: scleral icterus, trauma ENMT Brief: FOUND: hearing intact, mucosa moist, normal dentition Neck Brief: FOUND: midline, NOT FOUND: JVD, carotid bruits Respiratory Brief: FOUND: rales (in bases kiran ), wheezes Cardiovascular (brief) Cardiac Brief: FOUND: regular rate, regular rhythm, NOT FOUND: pedal edema Capillary Refill: <2 sec, other (pedal pulses +2 kiran) Abdomen (brief) Abdominal Brief: FOUND: BS normo active x4, distended, soft, NOT FOUND: tender Musculoskeletal (brief) Musculoskeletal Brief: FOUND: extremities move equally, NOT FOUND: loss of motion Integumentary (brief) Integumentary Brief: FOUND: dry, pink, warm, NOT FOUND: rash Neurologic (brief) Neurological Brief: FOUND: motor, sensory, NOT FOUND: facial droop, ptosis Neurologic RN Documented GCS Eye Opening: Verbal: Motor: Total: Psychiatric (brief) FOUND: alert, attentive, normal affect, oriented Laboratory Laboratory Tests Test 11/19/16 20:05 11/20/16 03:06 White Blood Count 10.2T/MM3 Red Blood Count 5.12M/MM3 Hemoglobin 15.9GM/DL Hematocrit 46.7% Mean Corpuscular Volume 91.2UM3 Mean Corpuscular Hemoglobin 31.1UUG Mean Corpuscular Hemoglobin Concent 34.0GM/DL RDW Standard Deviation 47.0FL Platelet Count 195T/MM3 Mean Platelet Volume 9.9UM3 Immature Granulocyte % (Auto) 0.2% Neutrophils (%) (Auto) 60.0% Lymphocytes (%) (Auto) 28.6% Monocytes (%) (Auto) 7.4% Eosinophils (%) (Auto) 3.4% Basophils (%) (Auto) 0.4% Absolute Immature Granulocyte (auto 0.02T/MM3 Absolute Neutrophils (auto) 6.1T/MM3 Absolute Lymphocytes (auto) 2.9T/MM3 Absolute Monocytes (auto) 0.8T/MM3 Absolute Eosinophils (auto) 0.4T/MM3 Absolute Basophils (auto) 0.0T/MM3 Prothromb Time International Ratio 0.99 Turbidity < 20 Sodium Level 140MEQ/L Potassium Level 4.7MEQ/L Chloride Level 102MEQ/L Carbon Dioxide Level 26MEQ/L Anion Gap 12MEQ/L Blood Urea Nitrogen 20.0MG/DL Creatinine 1.0MG/DL Glomerular Filtration Rate Calc 74 BUN/Creatinine Ratio 20RATIO Glucose Level 104MG/DL Calculated Osmolality 272MOSM/KG Calcium Level 9.4MG/DL Total Bilirubin 1.10MG/DL Icterus Index < 2 Aspartate Amino Transf (AST/SGOT) 29U/L Alanine Aminotransferase (ALT/SGPT) 26U/L Alkaline Phosphatase 102U/L Troponin I < 0.012ng/ml < 0.012ng/ml [id number] Natriuretic Peptide 115PG/ML Total Protein 7.9G/DL Albumin 4.2G/DL Globulin 3.7G/DL Albumin/Globulin Ratio 1.1RATIO Chemistry Specimen Hemolysis 23 < 15 Magnesium Level 2.2MG/DL Triglycerides Level 72MG/DL Cholesterol Level 174MG/DL LDL Cholesterol, Calculated 108.6 VLDL Cholesterol 14.4MG/DL HDL Cholesterol Direct 51MG/DL Cholesterol/HDL Ratio 3.4RATIO Thyroid Stimulating Hormone (TSH) 1.33MIU/L EKG SR, possible ST depression in leads V3 and V4. Pt shaky and eCG reflects this so difficult to tell. Will repeat ECG in am. Radiology CXr: heart size normal, no effusion. possible edema. pending read by radiologist. Assessment & Plan Problems: (1) Chest pain Status: Acute Assessment & Plan: Although ECG shows no acute ischemia. ECG difficult to read , possible ST depression in V3 and V4. will repeat this am. trop negative. do serial trop. his chest pain is chest wall pain with deep breaths and on palpitation, But he looks like he could have heart disease. Ordered Lovenox 1mg/ kg x1. ASA 81mg daily. check lipid profile and LDL 108 (<130) with no known CAD - no need for statin at this time. Start BB for now. His chest pain reoccurred on the floor 09/07 and Ntg sl x1 relieved the pain. Echo to evaluate structure and function of heart. (2) Chest wall pain Status: Acute Assessment & Plan: Aleve 20mg now and then prn. (3) COPD (chronic obstructive pulmonary disease) Status: Chronic Assessment & Plan: Since he is wheezing and has rales in lower lbes. Will order RCAT. cont home inhalers but may need a nebulizer treatment. May need steroids again. No need for ABX. DVT Prophylaxis: Lovenox Code Status Full Code Hospital Course Summary Disclaimer The hospital course summary below is not to be considered part of the above Progress Note. REBECCA HERZOG [employer]IC[employer] Nov 20, 2016 05:14
[2016-11-20] MEDS ORDERED: OMEPRAZOLE 20 MG CAPSULE PO SCH (06:30)
[2016-11-20] MEDS ORDERED: ALBUTEROL INH.SOLN. 2.5mg/3ml (0.083%) Neb. AEROSOL PRN (07:00)
[2016-11-20] MEDS ORDERED: IPRATROPIUM AEROSOL SCH (07:00)
--- NOTE | 2016-11-20 08:03 | DI ---
Indication: ITS.REASON: chest pain, substernal PROCEDURE: CHEST 1 VIEW: Encounter: Initial Comparison: None Findings: Mild interstitial prominence in the bases. Upper lung chang are clear. No pneumothorax or pleural effusion. Heart size and mediastinal contours are within normal limits. Pulmonary vascularity appears normal. Internally fixed right clavicular fracture. Impression: Mild interstitial prominence in the bases could be due to atypical/viral pneumonia or bronchitis. .
--- NOTE | 2016-11-20 08:30 | NUR ---
STATUS PT IS ALERT AND ORIENTED X3. DENIED SOA. PT IS ON 2L OF O2. REPORTED PAIN IN THE RIGHT ANTERIOR CHEST CHARTED. IS WITH PT. WILL CONTINUE TO MONITOR.
[2016-11-20] MEDS ORDERED: ENOXAPARIN 40 MG/0.4 ML INJECTION SQ SCH (09:00)
[2016-11-20] MEDS ORDERED: ASPIRIN *EC* 81mg TABLET PO SCH ×2 (09:00→16:00)
[2016-11-20] MEDS ORDERED: ALBUTEROL/IPRATROPIUM INHAL. 2.5mg-0.5mg/3ml Neb. AEROSOL PRN (09:15)
[2016-11-20] MEDS ORDERED: --POM--ALBUTEROL HFA INHALER 8gm ORAL INH PRN (09:30)
--- NOTE | 2016-11-20 09:50 | NUR ---
CM CM IN TO VISIT PATIENT, HE IS A&O, IS AT THE BEDSIDE. PATIENT PLANS TO DISCHARGE HOME, DENIES DISCHARGE NEEDS. CM CONTACT INFORMATION PROVIDED. Addendum: 11/20/16 at 0951 by JESSE YUNG RN Amended: Links added.
[2016-11-20] MEDS ORDERED: ALBUTEROL/IPRATROPIUM INHAL. 2.5mg-0.5mg/3ml Neb. AEROSOL SCH (13:00)
[2016-11-20] MEDS ORDERED: PNEUMOCOCCAL VAC. ADMIN. CHARGE INJ ONE (13:41)
[2016-11-20] MEDS ORDERED: PNEUMOCOCCAL 23 VACCINE 0.5 ML INJECTION IM ONE (13:45)
--- NOTE | 2016-11-20 15:06 | ECHOF ---
DATE OF PROCEDURE November 20, 2016 This is a two-dimensional echo with spectral Doppler, color-flow and M-mode. It was obtained in a patient with chest pain. Left atrial dimension is normal. Left ventricle end-diastolic dimension is normal. Left ventricle wall thickness is normal. LV systolic function is normal with ejection fraction of 70%. Right atrium is normal. Right ventricle is normal. Aortic root dimension is normal. Mitral valve is morphologically normal with trace of mitral regurgitation. Aortic valve was not visualized well. However, it appears to show no stenosis or insufficiency. Tricuspid valve shows trace of tricuspid regurgitation with normal estimated pulmonary artery systolic pressure of 19. Pulmonary valve was not visualized. There is no pericardial effusion. IMPRESSION 1. Technically difficult study. 2. Grossly normal LV systolic function with ejection fraction of 70%. 3. Trace of mitral regurgitation. 4. Trace of tricuspid regurgitation with normal estimated pulmonary artery systolic pressure of 19. MTDD
[2016-11-20] MEDS ORDERED: NITR0.4T SL (16:04)
[2016-11-20] MEDS ORDERED: ASPI-1085 PO (16:04)
--- NOTE | 2016-11-20 16:57 | DSPDOC ---
JONAH WHEAT [employer] 11/20/16 1655: General Date Date DATE: 11/20/16 TIME: 16:51 Attending Physician Hugo Rudolph MD Admitting Physician Hugo Rudolph MD Consulting Physician Admitting Diagnosis chest pain Discharge Diagnosis chest pain Laboratory l Laboratory Tests Test 11/19/16 20:05 11/20/16 03:06 11/20/16 07:28 White Blood Count 10.2T/MM3 Red Blood Count 5.12M/MM3 Hemoglobin 15.9GM/DL Hematocrit 46.7% Mean Corpuscular Volume 91.2UM3 Mean Corpuscular Hemoglobin 31.1UUG Mean Corpuscular Hemoglobin Concent 34.0GM/DL RDW Standard Deviation 47.0FL Platelet Count 195T/MM3 Mean Platelet Volume 9.9UM3 Immature Granulocyte % (Auto) 0.2% Neutrophils (%) (Auto) 60.0% Lymphocytes (%) (Auto) 28.6% Monocytes (%) (Auto) 7.4% Eosinophils (%) (Auto) 3.4% Basophils (%) (Auto) 0.4% Absolute Immature Granulocyte (auto 0.02T/MM3 Absolute Neutrophils (auto) 6.1T/MM3 Absolute Lymphocytes (auto) 2.9T/MM3 Absolute Monocytes (auto) 0.8T/MM3 Absolute Eosinophils (auto) 0.4T/MM3 Absolute Basophils (auto) 0.0T/MM3 Prothromb Time International Ratio 0.99 Turbidity < 20 Sodium Level 140MEQ/L Potassium Level 4.7MEQ/L Chloride Level 102MEQ/L Carbon Dioxide Level 26MEQ/L Anion Gap 12MEQ/L Blood Urea Nitrogen 20.0MG/DL Creatinine 1.0MG/DL Glomerular Filtration Rate Calc 74 BUN/Creatinine Ratio 20RATIO Glucose Level 104MG/DL Calculated Osmolality 272MOSM/KG Calcium Level 9.4MG/DL Total Bilirubin 1.10MG/DL Icterus Index < 2 Aspartate Amino Transf (AST/SGOT) 29U/L Alanine Aminotransferase (ALT/SGPT) 26U/L Alkaline Phosphatase 102U/L Troponin I < 0.012ng/ml < 0.012ng/ml < 0.012ng/ml DD-Ryh-V-Type Natriuretic Peptide 115PG/ML Total Protein 7.9G/DL Albumin 4.2G/DL Globulin 3.7G/DL Albumin/Globulin Ratio 1.1RATIO Chemistry Specimen Hemolysis 23 < 15 < 15 Magnesium Level 2.2MG/DL Triglycerides Level 72MG/DL Cholesterol Level 174MG/DL LDL Cholesterol, Calculated 108.6 VLDL Cholesterol 14.4MG/DL HDL Cholesterol Direct 51MG/DL Cholesterol/HDL Ratio 3.4RATIO Thyroid Stimulating Hormone (TSH) 1.33MIU/L Laboratory Tests Test 11/19/16 20:05 11/20/16 03:06 11/20/16 07:28 White Blood Count 10.2T/MM3 (4.5-11.0) Red Blood Count 5.12M/MM3 (4.50-5.90) Hemoglobin 15.9GM/DL (13.5-17.5) Hematocrit 46.7% (41-53) Mean Corpuscular Volume 91.2UM3 (80-100) Mean Corpuscular Hemoglobin 31.1UUG (26-34) Mean Corpuscular Hemoglobin Concent 34.0GM/DL (31-37) RDW Standard Deviation 47.0FL (36.9-50.2) Platelet Count 195T/MM3 (130-400) Mean Platelet Volume 9.9UM3 (9.4-12.4) Immature Granulocyte % (Auto) 0.2% (0.0-0.5) Neutrophils (%) (Auto) 60.0% (33-66) Lymphocytes (%) (Auto) 28.6% (23-45) Monocytes (%) (Auto) 7.4% (0-9.0) Eosinophils (%) (Auto) 3.4% (0-4) Basophils (%) (Auto) 0.4% (0-2) Absolute Immature Granulocyte (auto 0.02T/MM3 (0.00-0.03) Absolute Neutrophils (auto) 6.1T/MM3 (1.8-7.7) Absolute Lymphocytes (auto) 2.9T/MM3 (1-4.8) Absolute Monocytes (auto) 0.8T/MM3 (0-0.8) Absolute Eosinophils (auto) 0.4T/MM3 (0-0.5) Absolute Basophils (auto) 0.0T/MM3 (0-0.2) Prothromb Time International Ratio 0.99 (0.76-1.04) Turbidity < 20 (0-20) Sodium Level 140MEQ/L (134-144) Potassium Level 4.7MEQ/L (3.6-5) Chloride Level 102MEQ/L (98-107) Carbon Dioxide Level 26MEQ/L (22-30) Anion Gap 12MEQ/L (5-15) Blood Urea Nitrogen 20.0MG/DL (9-20) Creatinine 1.0MG/DL (0.8-1.5) Glomerular Filtration Rate Calc 74 BUN/Creatinine Ratio 20RATIO (6-26) Glucose Level 104MG/DL (75-110) Calculated Osmolality 272MOSM/KG (261-280) Calcium Level 9.4MG/DL (8.4-10.2) Total Bilirubin 1.10MG/DL (0.20-1.30) Icterus Index < 2 (0-7) Aspartate Amino Transf (AST/SGOT) 29U/L (17-59) Alanine Aminotransferase (ALT/SGPT) 26U/L (21-72) Alkaline Phosphatase 102U/L (38-126) Troponin I < 0.012ng/ml (0-0.12) < 0.012ng/ml (0-0.12) < 0.012ng/ml (0-0.12) IR-Fmh-U-Type Natriuretic Peptide 115PG/ML (0-175) Total Protein 7.9G/DL (6.3-8.2) Albumin 4.2G/DL (3.5-5.0) Globulin 3.7G/DL (2.4-3.6) Albumin/Globulin Ratio 1.1RATIO (1.1-2.2) Chemistry Specimen Hemolysis 23 (0-25) < 15 (0-25) < 15 (0-25) Magnesium Level 2.2MG/DL (1.6-2.3) Triglycerides Level 72MG/DL (40-160) Cholesterol Level 174MG/DL (132-199) LDL Cholesterol, Calculated 108.6 (66-159) VLDL Cholesterol 14.4MG/DL (0-28) HDL Cholesterol Direct 51MG/DL (40-60) Cholesterol/HDL Ratio 3.4RATIO (0-5.0) Thyroid Stimulating Hormone (TSH) 1.33MIU/L (0.47-4.68) Radiology DATE OF EXAM: 11/19/16 ORDERING DOCTOR: DWAIN BAEZ MD TYPE OF EXAM: CHEST 1 VIEW REASON FOR EXAM: chest pain, substernal Indication: ITS.REASON: chest pain, substernal PROCEDURE: CHEST 1 VIEW: Encounter: Initial Comparison: None Findings: Mild interstitial prominence in the bases. Upper lung chang are clear. No pneumothorax or pleural effusion. Heart size and mediastinal contours are within normal limits. Pulmonary vascularity appears normal. Internally fixed right clavicular fracture. Impression: Mild interstitial prominence in the bases could be due to atypical/viral pneumonia or bronchitis. History of Present Illness This is a 71 year old patient with history of COPD. Denies HTN, DSLD or cardiac issues. Has occasional GERD. About 20 yrs ago he had a heart cath in [place] and told his coronaries look good. His PCP is in [facility] which he goes to regularly. About 1 month ago he was diagnosed with pneumonia or bronchitis and was prescribed Levaquin and steroids. He still has an occasional cough. Last night about 1730 he was talking on the phone when he started to get SOB. Then he developed a sudden severe sharp right sided chest pain without radiation. he has never felt pain this bad before. He denies nausea, diaphoresis , palpitations, or lightheadedness. His brought him into [facility]. EKG shows a normal sinus rhythm without ischemia, ectopy, or infarction. trop neg. CBC, CMP, and BNP are all normal. CXR heart size normal, no effusions, possible congestion. In ER he was given initial nitroglycerin, ASA, and 50 g of fentanyl - after 50 g of fentanyl and first nitroglycerin patient had pain relief from 8 down to 3 out of 10 on the then patient had additional 2 nitroglycerin to complete relief. Patient is able to reproduce a small amount of the pain by taking a deep breath and twisting his torso, while he lays still the patient is in no distress and has no discomfort. the chest pain returns when he coughs. I can reproduce chest pain on palpation on the right side but not to the degree it hurt initially. We admitted pt as OBS for chest pain. Objective Vital Signs Vital signs Vital Signs 11/20/16 11/20/16 11/20/16 11/20/16 05:05 05:07 05:10 07:18 Temp 97.4 Pulse 80 77 Resp 22 18 B/P 147/81 121/71 Pulse Ox 90 88 92 92 O2 Delivery Room Air Room Air Nasal Cannula Nasal Cannula O2 Flow Rate 2.00 2.00 11/20/16 11/20/16 11/20/16 11/20/16 07:19 07:57 08:30 09:45 Temp 96.7 98.7 Pulse 71 71 71 70 Resp 18 18 15 B/P 152/78 Pulse Ox 95 97 O2 Delivery Nasal Cannula Nasal Cannula O2 Flow Rate 2.00 2.00 11/20/16 11/20/16 11/20/16 11/20/16 09:45 10:00 15:25 15:25 Pulse 70 74 Resp 16 18 Pulse Ox 93 11/20/16 11/20/16 11/20/16 11/20/16 15:34 15:34 15:35 15:53 Temp 96.3 Pulse 74 74 Resp 18 B/P 133/85 Pulse Ox 94 92 93 O2 Delivery Nasal Cannula Nasal Cannula Nasal Cannula O2 Flow Rate 2.00 1.00 1.00 11/20/16 11/20/16 15:53 16:07 Pulse Ox 93 O2 Delivery Room Air Room Air Telemetry Rhythm: Sinus Rhythm Height (Feet): 6 Height (Inches): 1.00 Weight (Kilograms): 99.500 General Alert, Obese, Orientated x 3, Cooperative ENMT (Brief) mucosa moist Neck (Brief) NOT FOUND: JVD, carotid bruits Respiratory (Brief) equal bilaterally, rales (bibasilar), NOT FOUND: clear all chang Cardiovascular (Brief) regular rate, regular rhythm, NOT FOUND: click, gallop, murmur, pedal edema, rub Abdomen (Brief) BS normo active x4, soft Integumentary (Brief) dry, pink, warm Psychiatric (Brief) alert, oriented Laboratory Laboratory Laboratory Tests 11/19/16 20:05 Laboratory Tests 11/19/16 20:05 EKG SR, no ischemia or ectopy Medications Current Medications Aspirin (ASA) 324 mg O ONCE PO Last administered on 11/19/16 19:54; Start at 20:00; Stop 11/20/16 at 15:59; Status DC Fentanyl (Fentanyl) 50 mcg O ONCE IV Last administered on 11/19/16 20:18; Start 11/19/16 at 20:00; Stop 11/19/16 at 20:01; Status DC Albuterol Sulfate (Proventil 2.5 Mg/3 ml) 2.5 mg Q4H PRN AEROSOL SHORTNESS OF AIR; Start 11/20/16 at 07:00; Stop 11/20/16 at 09:16; Status DC Ipratropium [place] (Atrovent) 0.5 mg RTQID AEROSOL ; Start 11/20/16 at 07:00; Stop 11/20/16 at 09:58; Status DC Morphine Sulfate (Morphine) 2 mg Q5-10M PRN IV CHEST PAIN; Start 11/20/16 at 03 :30 Nitroglycerin (Nitrostat) 0.4 mg Q5MIN PRN SL CHEST PAIN Last administered on 05:29; Start 11/20/16 at 03:30 Omeprazole (Prilosec) 20 mg ACB PO Last administered on 11/20/16 07:10; Start 11/20/16 at 06:30 Ondansetron HCl (Zofran) 4 mg Q6H PRN IV NAUSEA &/OR VOMITING; Start 11/20/16 at 03:30 Enoxaparin Sodium (Lovenox) 100 mg O ONCE SQ Last administered on 11/20/16 07 :10; Start 11/20/16 at 05:00; Stop 11/20/16 at 06:40; Status DC Acetaminophen (Tylenol Regular Strength) 650 mg Q5H PRN PO DISCOMFORT; Start at 05:00 Docusate Sodium (Colace) 100 mg DAILY PRN PO ; Start 11/20/16 at 05:00 Polyethylene Glycol (Miralax) 17 g DAILY PRN PO ; Start 11/20/16 at 05:00 Calcium Carbonate (TUMS Extra Strength) 1,500 mg PRN PRN PO ; Start 11/20/16 at 05:15 Naproxen Sodium (ALEVE 220 mg) 220 mg BID PRN PO PAIN; Start 11/20/16 at 05:15 Metoprolol Tartrate (Lopressor) 12.5 mg BIDWM PO Last administered on 08:13; Start 11/20/16 at 08:00; Stop 11/20/16 at 15:59; Status DC Albuterol/ Ipratropium (Duoneb) 3 ml PRN PRN AEROSOL Last administered on 11/20 09:55; Start 11/20/16 at 09:15 Albuterol (Ventolin Hfa) 1 puff Q4H PRN ORAL INH ; Start 11/20/16 at 09:30; Stop 11/20/16 at 09:58; Status DC Budesonide (PULMICORT 0.25mg/2ml) 0.25 mg BID AEROSOL Last administered on 11/20 09:55; Start 11/20/16 at 21:00 Pneumococcal Polyvalent Vaccine (Pneumovax 23) 0.5 ml O ONCE IM Last administered on 11/20/16 13:41; Start 11/20/16 at 13:45; Stop 11/20/16 at 13:54 ; Status DC Aspirin (Ecotrin) 81 mg DAILY PO ; Start 11/20/16 at 16:00; Status UNV Hospital Course Ivan was admitted to r/o [place]. Serial troponin levels were negative. EKGs without ischemic changes or ectopy. Chest pain has not recurred. Patient is now on room air with adequate saturations Problems: (1) Chest pain Status: Acute (2) Chest wall pain Status: Acute (3) COPD (chronic obstructive pulmonary disease) Status: Chronic Code Status Full Code Home Meds Active Scripts Aspirin *EC* (Aspirin EC) 81 Mg Tablet.dr, 81 MG PO DAILY for 30 Days, #30 TAB 11 Refills Prov:JONAH WHEAT APRN 11/20/16 Nitroglycerin (Nitrostat) 0.4 Mg Tablet, 0.4 MG SL Q5MIN Y for CHEST PAIN for 25 Days, #25 TAB 1 Refill Prov:JONAH WHEAT APRN 11/20/16 Reported Medications Albuterol Sulfate (Proair HFA 90 mcg/actuation) 8.5 Gm Hfa.aer.ad, 1 PUFF INH Q4H Y for PRN ORDERS 11/19/16 Ipratropium [place] (Atrovent Hfa) 200 Puff/12.9 G Inhaler, 2 PUFF INH QID 11/19/16 Discharge Disposition Discharged to home in good and stable condition in the care of himself, istructed to follow up with [facility] for Dr. Rudolph to establish and schedule outpatient stress test HUGO RUDOLPH MD 11/22/16 1729: Hospital Course Home Meds Active Scripts Aspirin *EC* (Aspirin EC) 81 Mg Tablet., 81 MG PO DAILY for 30 Days, #30 TAB 11 Refills Prov:JONAH WHEAT APRN 11/20/16 Nitroglycerin (Nitrostat) 0.4 Mg Tablet, 0.4 MG SL Q5MIN Y for CHEST PAIN for 25 Days, #25 TAB 1 Refill Prov:JONAH WHEAT APRN 11/20/16 Reported Medications Albuterol Sulfate (Proair HFA 90 mcg/actuation) 8.5 Gm Hfa.aer.ad, 1 PUFF INH Q4H Y for PRN ORDERS 11/19/16 Ipratropium [place] (Atrovent Hfa) 200 Puff/12.9 G Inhaler, 2 PUFF INH QID 11/19/16 Discharge Disposition After examining the patient I agree with the above assessment. I am involved in the formulation of the patient's plan of care. JONAH WHEAT APRN Nov 20, 2016 16:55 HUGO RUDOLPH MD Nov 22, 2016 17:29
--- NOTE | 2016-11-20 17:08 | NUR ---
DISCHARGE PT IS ALERT AND ORIENTED X3. PT DENIED ANY CHEST PAIN IN THIS TIME. PT DENIED ANY SOA DISCHARGE ON RA. PT'S MEDS WERE SENT HOME WITH PT. DISCHARGE INSTRUCTIONS WERE GIVEN TO PT AND FAMILY. NEW MEDICATIONS WERE EXPLAINED TO PT AND FAMILY. DISCHARGE PACKAGE WAS SENT HOME WITH PT. INFORMATION ABOUT CHEST PAIN WAS EXPLAINED AND GIVEN TO PT. IV WAS D/C AND REMOVED. IV TIP WAS INTACT. PT LEFT THE UNIT AMBULATING HIS SISTER WAS WITH HIM AND A STAFF MEMBER WELL.
[2016-11-20] MEDS ORDERED: BUDESONIDE 0.25 MG/2 ML AEROSOL SCH (21:00)
== END 2016-11-20 16:36 | disposition home or self-care (01) ==
LOC: ED 19:48 → EDHOLD 21:59 → MED 23:12
PROVIDERS: ADMIT Internal Medicine Cardiovascular Disease; ATTEND Internal Medicine Cardiovascular Disease
DX: R07.89 Other chest pain (principal); J44.9 Chronic obstructive pulmonary disease, unspecified; K21.9 Gastro-esophageal reflux disease without esophagitis; E78.00 Pure hypercholesterolemia, unspecified; Z98.61 Coronary angioplasty status; Z79.899 Other long term (current) drug therapy; Z87.891 Personal history of nicotine dependence; Z23 Encounter for immunization
CPT/HCPCS: 36415; 71010; 80053; 80061; 83735; 83880; 84443; 84484; 85025; 85610; 90732; 93005; 93306; 94640; 96372; 96374; 99284; A9270; G0009; G0378; J1650; J3010; J7633; 99218